=== PATIENT | female | born 1940 | race Caucasian/White ===

== ENCOUNTER 2019-04-10 11:35 | Inpatient (IN) ==
--- NOTE | 2019-03-22 15:47 | PAT Medication Instructions ---
Medication Instructions Date of Service March 22, 2019 Home Medications arnica 1 applic TOPICAL DAILY PRN 04/15/18 [History Confirmed 03/21/19] biotin 10 mg PO QDL 04/15/18 [History Confirmed 03/21/19] cyanocobalamin (vitamin B-12) [Vitamin B-12] 5,000 mcg SUBLINGUAL QAM multivitamin 1 tab PO QAM 04/15/18 [History Confirmed 03/21/19] tyrosine 500 mg capsule 500 mg PO QAM cap 12/29/18 [History Confirmed 03/21/19] folic acid 800 mcg PO QAM 01/06/19 [History Confirmed 03/21/19] levothyroxine 25 mcg PO QAM 01/06/19 [History Confirmed 03/21/19] meclizine 25 mg PO UD PRN 01/24/19 [History Confirmed 03/21/19] Eliquis 5 mg PO BID 03/21/19 [History Confirmed 03/21/19] ASK your prescriber and surgeon Eliquis 5 mg PO BID 03/21/19 (in order for spinal anesthesia, Eliquis needs to be stopped 72 hours/3 days before surgery. Please check if okay with doctor that prescribes this to you) STOP taking 2 weeks before surgery (or as soon as possible if surgery is within 2 weeks) biotin 10 mg PO QDL 04/15/18 [History Confirmed 03/21/19] tyrosine 500 mg capsule 500 mg PO QAM cap 12/29/18 [History Confirmed 03/21/19] STOP taking 24 hours before surgery arnica 1 applic TOPICAL DAILY PRN 04/15/18 [History Confirmed 03/21/19] DO NOT take the morning of surgery cyanocobalamin (vitamin B-12) [Vitamin B-12] 5,000 mcg SUBLINGUAL QAM multivitamin 1 tab PO QAM 04/15/18 [History Confirmed 03/21/19] folic acid 800 mcg PO QAM 01/06/19 [History Confirmed 03/21/19] Take morning of surgery With a small sip of water, OTHERWISE NOTHING TO EAT OR DRINK AFTER MIDNIGHT: levothyroxine 25 mcg PO QAM 01/06/19 [History Confirmed 03/21/19] meclizine 25 mg PO UD PRN (if needed) Other Notes If you have any questions please call us at [phone] or [phone] or [phone] or [phone]
--- NOTE | 2019-03-23 10:41 | Anesthesiology Consultation ---
Date of Service March 23, 2019 Assessment & Plan (1) Encounter for pre-operative examination: - Awaiting review preop testing (labs, CXR). - Awaiting most recent cardiology office visit note/pacer check. - Eliquis instructions: patient made aware that in order for spinal anesthesia, Eliquis needs to be held 72 hours prior to surgery. Patient voiced understanding/will check if okay with prescriber. Chart Review Chart Review: Patient seen in Pre Admission Testing Teaching & Discussion Pre-Anesthesia Teaching/Discussion Notes: Instructed NPO after midnight before surgery,except medications with 15 cc of water. Medication instructions provided according to the PAT guidelines. History Surgery Operation Date: 04/10/19 13:50 Proposed Procedures p Right Total Knee Replacement Revision - Anshul Salgado MD Height/Weight Height: 4 ft 10 in Weight: 53.5 kg Allergies Allergy/AdvReac Type Severity Reaction Status Date / Time egg Allergy Mild Rash Verified 03/21/19 13:48 nitrofurantoin AdvReac Intermediate dizziness Verified 03/23/19 10:36 [From Macrodantin] adhesive tape AdvReac Mild skin Verified 03/23/19 10:36 irritation clindamycin AdvReac Mild GI upset Verified 03/23/19 10:36 Penicillins AdvReac Mild GI upset Verified 03/23/19 10:36 Medications Home Medications Medication Instructions Recorded Confirmed Last Taken arnica 1 applic TOPICAL DAILY PRN 04/15/18 03/21/19 01/24/19 biotin 10 mg PO QDL 04/15/18 03/21/19 Unknown cyanocobalamin (vitamin B-12) 5,000 mcg SUBLINGUAL QAM 04/15/18 03/21/19 01/22/19 [Vitamin B-12] multivitamin 1 tab PO QAM 04/15/18 03/21/19 01/22/19 tyrosine 500 mg capsule 500 mg PO QAM cap 12/29/18 03/21/19 01/22/19 folic acid 800 mcg PO QAM 01/06/19 03/21/19 01/22/19 levothyroxine 25 mcg PO QAM 01/06/19 03/21/19 01/22/19 meclizine 25 mg PO UD PRN 01/24/19 03/21/19 01/24/19 10:00 Eliquis 5 mg PO BID 03/21/19 03/21/19 Unknown Past Medical History Medical History A-fib (Chronic) Chronic pain left knee Diverticular disease Hx of basal cell carcinoma face s/p excision Hx of vertigo Hypothyroidism Pacemaker hx tachy cody syndrome Exercise / Class Metabolic Activity III < 4 Walking/Shop/Light housework (uses walker PRN) Past Family History Family History Grandmother (Maternal) Family history of diabetes mellitus Mother Colorectal cancer Other Family history non-contributory Past Surgical History Surgical History History of basal cell carcinoma excision History of excision of pilonidal cyst History of permanent cardiac pacemaker placement 2014 History of surgery IMPLANTS IN CHIN 2/2 DETERIORATION History of total right knee replacement Hx of colonoscopy with polypectomy Hx of tonsillectomy Past Anesthesia History No Family Hx of Anesthesia Complications and Other Severe diarrhea post-op knee surgery History of PONV No Hx of PONV and No Hx of Motion Sickness Social History Smoking Status: Never smoker Do You Dip or Chew Tobacco: No Hx Alcohol Use: No Hx Substance Use: No substance use type: does not use Review of Systems Patient denies chest pain, shortness of breath, cough, wheezing, palpitations. Physical Exam Vital Signs VITALS BP 154/82 (patient monitors- bp typically 130's/70's) P 90 TEMP 98.2 SP02 95%RA RESP 16 PHYSICAL Mildly decreased cervical extension Full TMJ range of motion. TMD 3.5 finger breaths Mallampati Score 2 Dentition: intact, lower front implants Lungs: clear throughout to auscultation Cardiac: regular rate and rhythm, no murmurs noted Spine: kyphosis Carotid arteries: negative bruit Extremities: no edema Testing Electrocardiogram Date: 04/15/18 04/15/18: Atrial-paced rhythm at 63bpm. *Poor data quality* 04/14/18: Atrial-paced rhythm at 69bpm. Echocardiogram Date: 08/28/16 LVEF 55%. Mild AR. Grade I DD. Trace to mild TR. Small to medium size effusion adjacent to the RA/RV. No evidence of tamponade.
--- NOTE | 2019-03-23 12:07 | XRay Report ---
XR chest Pre-admission PA/Lat CLINICAL HISTORY: 78 years-old Female presenting with preoperative assessment. TECHNIQUE: PA and lateral views of the chest were obtained. COMPARISON: 04/15/2018. FINDINGS: Left subclavian pacer with leads in the right atrium and right ventricular apex. Atherosclerosis of t he aortic arch. Cardiac silhouette mildly enlarged. Lungs and pleural spaces clear. Scoliotic curvatu re and degenerative changes of the spine. Suspected osteopenia. Upper abdomen normal. IMPRESSION: 1. Mild cardiomegaly. No other convincing evidence of acute cardiopulmonary disease. Electronically signed by: Farhan Diallo M.D. 03/23/2019 12:05 PM
[2019-03-23 12:42] LABS: Basophils # (auto) 0.03 K/uL (0-0.2); Basophils % (auto) 0.6 %; Eosinophils # (auto) 0.12 K/uL (0-0.5); Eosinophils % (auto) 2.3 %; Hematocrit (blood only) 43.7 % (37-47); Hemoglobin 14.5 g/dL (12.0-16.0); Immature Granulocytes # (auto) 0.01 K/uL (0.00-0.02); Immature Granulocytes % (auto) 0.2 %; Lymphocytes # (auto) 1.09 K/uL (1.2-3.4); Lymphocytes % (auto) 21.3 %; Mean Corpuscular Hemoglobin 30.1 pg (25-34); Mean Corpuscular Hgb Conc 33.2 g/dL (32-36); Mean Corpuscular Volume 90.9 fL (80-100); Mean Platelet Volume 9.8 fL (7.4-10.4); Monocytes # (auto) 0.46 K/uL (0.11-0.59); Neutrophils % (auto) 66.6 %; Platelet Count 219 K/uL (130-400); RDW Coefficient of Variation 14.2 % (11.5-14.5); RDW Standard Deviation 47.8 fL (36.4-46.3); Red Blood Count 4.81 M/uL (4.2-5.4); White Blood Count 5.11 K/uL (4.8-10.8)
[2019-03-23 13:03] LABS: BUN Creatinine Ratio 25.5 (10-20); Blood Urea Nitrogen 19 mg/dl (7-18); C Reactive Protein < 0.29 mg/dl (0-0.29); Calcium 9.4 mg/dl (8.5-10.1); Carbon Dioxide 29 mmol/L (21-32); Chloride 108 mmol/L (98-107); Est GFR (African American) 88.7; Est GFR (Non-African American) 76.5; Glucose 83 mg/dl (70-99); Potassium 4.2 mmol/L (3.5-5.1); Sodium 142 mmol/L (136-145)
[2019-03-23 13:04] LABS: Partial Thromboplastin Ratio 1.1; Partial Thromboplastin Time 30.2 Seconds (21.0-31.0); Prothrombin Time 10.5 Seconds (9.0-12.0)
--- NOTE | 2019-04-07 11:15 | History and Physical Report ---
DATE OF ADMISSION: 04/10/2019 CHIEF COMPLAINT: Right knee pain, discomfort, instability and swelling. HISTORY OF PRESENT ILLNESS: The patient is an 78-year-old female, fairly active and independent who presents for treatment of her right knee. She lives in the [place] area now and she moved here from [place]. She had a right knee replaced in December [address] Valladares in [place]. She did pretty well until about a year ago. She started developing increased pain, discomfort and deformity into her right mosher primarily. Her symptoms have gradually progressed over time. She is having more and more difficulty walking. Her knee feels unstable. She has had an extensive evaluation by Dr. Zambrano as well as went back to see Dr. Valladares. She had an infectious workup which was negative. She now presents for revision. Dr. Zambrano deferred and Dr. Valladares recommended she have it done closer to home. She had no problems with wound drainage or healing after the initial surgery. She uses a walker to get around due to her instability and pain. PAST MEDICAL HISTORY: 1. Atrial fibrillation followed by Dr. aMyo. 2. Spinal arthritis. 3. Oral implants. 4. Basal cell skin cancer. PAST SURGICAL HISTORY: 1. Pilonidal cyst excision. 2. Oral surgery. 3. Basal cell skin cancer removed from her face. 4. Right knee replacement done in December 2014. ALLERGIES: EGG-BASED PENICILLIN, MACRODANTIN. Not true allergy, just GI upset. CURRENT MEDICINES: 1. Eliquis 5 mg twice a day. 2. Levothyroxine 0.25 mg a day. 3. Cipro for a dental cleaning. SOCIAL HISTORY: This is an 78-year-old female. She is . Lives in [place]. Medical doctor is Dr. Delaney. Acid Mixer is Dr. Mayo. Does not smoke. FAMILY HISTORY: Noncontributory. REVIEW OF HISTORY: Negative for diabetes, neurologic problem, vascular problem, bleeding disorders. Denies any chest pain or shortness of breath. No history of DVT or PE. She is on Eliquis for AFib. She has a pacemaker in place. PHYSICAL EXAMINATION: GENERAL: Pleasant elderly female. Looks to be in reasonably good health. HEENT: Benign. NECK: Supple, no lymphadenopathy. LUNGS: Clear to auscultation. HEART: Regular rate and rhythm. ABDOMEN: Soft, nontender, nondistended. EXTREMITIES: Grossly neurovascularly intact except as follows: Examination of the right leg reveals the patient walks with a markedly antalgic gait. She has marked varus deformity to the knee which is increased with weightbearing. She has a small knee effusion. She has gross laxity to valgus stressing. She can do a straight leg raise. She has no pain with hip motion. There is no warmth to the knee. X-RAYS: X-rays of the right knee reviewed. Shows evidence of posterior stabilized total knee arthroplasty with obvious tibial loosening with her tray loose and tipped into varus. This has been a longstanding problem as there is osteolysis and extensive bone formed around it. The femur also looks like it might be a little bit loose. BONE SCAN: Bone scan from [facility] was reviewed. Shows obvious increased uptake around the tibia. Seems to be a little uptake around the femur as well. LABORATORY DATA: We did send her knee aspirate off for analysis. I aspirated the knee and she only had 637 white cells with 48% polys. Culture was no growth. Her laboratory workup was a normal CRP. Sed rate was just slightly elevated at 24. 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 There may be some loosening of the femoral component as well. This has been longstanding based on her radiographic changes. She had an extensive workup for infection which was negative. PLAN: We are going to take her to the operating room and revise her knee. We talked about the risks of this and she elected to proceed. If we get in there and there are signs of infection we will place an antibiotic spacer. I think that is unlikely concerning workup. The risks and benefits of right total knee revision were explained to the patient including but not limited to DVT, PE, , infection, neurological injury, vascular injury, bleeding problem, pain, limited range of motion, stiffness, failure to relieve her symptoms, incomplete relief of symptoms, need for further surgery in future, fracture, leg length inequality, nerve palsy, persistent infection and fracture. The patient understands and desires to proceed. Informed consent was obtained. The patient has been seen by Dr. Mayo and cleared for surgery. She is planning to be discharged to home with her 's help and the [facility]. I will have a hinged knee available in case it is needed due to her osteoporosis and concerns for fracture.
[~2019-04-10 11:35] MED LIST: ACETAMINOPHEN 500 MG TAB PO SCH; BUPIVACAINE 0.25% 30 ML VIAL ONE; BUPIVACAINE 0.5 % 5 MG/1 ML PF 10ML VIAL ONE; BUPIVACAINE LIPOSOME/PF 266 MG, BUPIVACAINE/EPINEPHRINE 50 ML, SODIUM CHLORIDE 0.9% 30 ... INFIL SCH; CEFAZOLIN 2000MG 2,000 MG/15 ML SYR IV SCH; FAMOTIDINE 20 MG TAB PO SCH; GABAPENTIN 300 MG CAP PO SCH; LR 500ML BOLUS, THEN 15ML/HR IV SCH; LR 60ML/HR IV SCH; METOCLOPRAMIDE HCL 10 MG TABLET PO SCH; TRANEXAMIC ACID 1,000 MG **IV Intra-op IV SCH
--- NOTE | 2019-04-10 12:27 | History & Physical Bridge Note ---
Date of Service April 10, 2019 History & Physical Bridge Note I have examined the patient, reviewed the History & Physical and in the interval since the performance of the History & Physical I have noted the following changes of clinical significance: no changes noted
[2019-04-10] MEDS ORDERED: fentaNYL citrate 100 MCG/2 ML VIAL ONE (13:38)
[2019-04-10] MEDS ORDERED: MIDAZOLAM HCL 1 MG/ML 2ML VIAL ONE (13:38)
[2019-04-10] MEDS ORDERED: ROPIVACAINE 0.5% 5 MG/ML 30 ML VIAL ONE (13:48)
[2019-04-10] MEDS ORDERED: EPINEPHrine INJ 1 MG/ML AMP ONE ×2 (13:49→14:10)
[2019-04-10] MEDS ORDERED: BUPIVACAINE/EPINEPHRINE 0.25% 1:200,000 30 ML VIAL ONE (14:09)
[2019-04-10] MEDS ORDERED: SODIUM CHLORIDE 0.9% PF 50 ML VIAL ONE (14:09)
[2019-04-10] MEDS ORDERED: BUPIVACAINE LIPOSOME 1.3% 266 MG/20 ML VIAL ONE (14:09)
[2019-04-10] MEDS ORDERED: BACITRACIN INJ 50,000 UNIT VIAL ONE (14:09)
[2019-04-10] MEDS ORDERED: BUPIVACAINE 0.25% 30 ML VIAL ONE (14:10)
[2019-04-10] MEDS ORDERED: VANCOMYCIN HCL 1000MG/20ML VIAL ONE (14:10)
[2019-04-10] MEDS ORDERED: ePHEDrine sulfate 50 MG/ML AMP IV PRN (14:38)
[2019-04-10] MEDS ORDERED: ATROPINE SULFATE 0.1 MG/ML 10ML SYR IV PRN (14:38)
[2019-04-10] MEDS ORDERED: ONDANSETRON INJ 2 MG/ML 2 ML VIAL ONE (14:45)
--- NOTE | 2019-04-10 17:17 | Post Operative Brief Note ---
PG Immediate Post Op with CF Date of Surgery April 10, 2019 Pre & Post Diagnosis Operation Date: 04/10/19 13:50 Pre-Op Diagnosis: Right Knee Aseptic tibial loosening Post-Op Diagnosis: Right Knee Aseptic tibial loosening I identified the patient and participated in the time-out.: Yes Procedure Operation Date: 04/10/19 13:50 Actual Procedures p Right Total Knee Replacement Revision(Right) - Anshul Salgado MD Surgeon Anshul Salgado MD Reimbursement Representative Ignacio, PAC Estimated Blood Loss 100 Findings Consistent with Post-Op Diagnosis Fluids 1000 cc Specimens Specimen Description: Culture #1: Right Knee Joint Fluid Frozen Section #1: Right Knee Synovium Drains Yao Catheter Anesthesia Type Spinal MAC Complications none Disposition Accompanied Patient To Recovery: No Disposition: Recovery Room
--- NOTE | 2019-04-10 17:44 | XRay Report ---
XR knee RT 1 or 2V routine CLINICAL HISTORY: Surgical Post Op COMPARISON: 03/20/2019 DISCUSSION: There are postsurgical changes of a total right knee arthroplasty revision with longstem femoral and tibial components. No acute fractures are visualized. There is evidence for patellar resu rfacing. There is gas present within the soft tissues consistent with recent surgery. There are overl deneen skin allan. There has been correction of the previously identified there is deformity. IMPRESSION: Postsurgical changes of a total right knee arthroplasty revision. No complicating feature s identified Electronically signed by: Hayden Casas M.D. 04/10/2019 5:43 PM
[2019-04-10] MEDS ORDERED: HYDROmorphone INJ 0.5 MG/0.5 ML SYR IV PRN (18:26)
[2019-04-10] MEDS ORDERED: ONDANSETRON INJ 2 MG/ML 2 ML VIAL IV PRN (18:26)
[2019-04-10] MEDS ORDERED: BISACODYL 10 MG SUPP PR PRN (18:26)
[2019-04-10] MEDS ORDERED: NALOXONE HCL 0.4 MG/1 ML VIAL/CARP IV PRN (18:26)
[2019-04-10] MEDS ORDERED: MAGNESIUM HYDROXIDE SUSP 30 ML UDC PO PRN (18:26)
[2019-04-10] MEDS ORDERED: ALUMINUM/MAGNESIUM SUSP 30 ML UDC PO PRN (18:26)
[2019-04-10] MEDS ORDERED: METOCLOPRAMIDE HCL INJ 5 MG/ML 2 ML VIAL IV PRN (18:26)
[2019-04-10] MEDS ORDERED: ARNICA TOP PRN (18:26)
--- NOTE | 2019-04-10 18:33 | Anesthesiology Progress Note ---
Date of Service April 10, 2019 Anesthesia Post Procedure Vital Signs Vital Signs: Temp Pulse Pulse Resp BP Pulse Ox 04/10/19 18:25 36.6 C 61 15 180/80 H 100 04/10/19 18:15 36.6 C 60 11 L 175/76 H 100 04/10/19 18:05 36.6 C 62 12 176/81 H 100 04/10/19 17:55 36.9 C 60 13 164/64 H 100 04/10/19 17:45 36.9 C 60 14 164/71 H 100 04/10/19 17:35 36.9 C 61 14 161/73 H 100 04/10/19 17:27 36.9 C 63 15 171/81 H 99 04/10/19 12:22 36.7 C 89 18 145/59 H 98 Transfer of Care Handoff Completed per policy Notes Mental Status: alert / awake / arousable and participated in evaluation Patient Amnestic to Procedure: Yes Nausea / Vomiting: adequately controlled Pain: adequately controlled Airway Patency, RR, SpO2: stable & adequate BP & HR: stable & adequate Hydration State: stable & adequate Neuraxial Anesthesia: was administered and sensory block is resolving Anesthetic Complications: no major complications apparent and Pt Satisfied with anesthetic care
[2019-04-10] MEDS ORDERED: MECLIZINE HCL 25 MG TAB PO PRN (18:47)
[2019-04-10] MEDS: TRAMADOL HCL 50 MG TABLET PO PRN (18:56)
--- NOTE | 2019-04-10 19:18 | Operative Report ---
Post Operative Report Pre & Post Diagnosis Operation Date: 04/10/19 13:50 Pre-Op Diagnosis: Right Knee Replacement - Aseptic tibial loosening Post-Op Diagnosis: Right Knee Replacement - Aseptic tibial loosening I identified the patient and participated in the time-out.: Yes Procedure Operation Date: 04/10/19 13:50 Actual Procedures p Right Total Knee Replacement Revision(Right) - Anshul Salgado MD Surgeon Anshul Salgado MD Cardiology Teacher Ignacio, PAC Estimated Blood Loss 100 Findings Consistent with Post-Op Diagnosis Operative findings revealed marketed varus knee with loose tibial component. Th e component had debonded from the cement mantle and the cement mantle was fairly loose within the proximal tibia. The femur appeared well fixed. The patella was well fixed. Moderate sized joint effusion. Extensive synovitis. Diffuse osteopenia. Gram stain revealed moderate WBCs no organisms. Frozen section was less than 5 polys per high-power field. Fluids 100 cc Specimens 1. Right knee synovium sent for frozen section which revealed less than 5 polys per high-power field. 2. Joint fluid sent for stat Gram stain aerobic and anaerobic culture. Gram stain revealed no organisms. Drains None. Anesthesia Type Spinal MAC Complications none Disposition Accompanied Patient To Recovery: No Disposition: Recovery Room Indications Patient is an 78-year-old fairly active healthy female who underwent a right knee replacement done elsewhere about 1/2 years ago. She did well until about a year ago when she developed increased pain discomfort swelling and deformity to her knee. She had extensive evaluation which revealed a loose tibial tray. She continued to walk on this and developed a progressive varus deformity to her knee. She has difficulty getting around to put any weight on her leg at all. She had several infectious work-ups which were all negative. The patient elected proceed with surgical revision. Description of Procedure Operative implants consisted of: 1. Biomet Vanguard III 60 size 60 right posterior bifemoral component with a 5 mm posterior medial augment, 2.5 mm offset stem, 14 x 80 mm stem extension. 2. Biomet Vanguard III 60 size 63 tibial tray with medial and lateral 10 mm augments, 2.5 mm offset, small cruciate wing, and a 12 x 80 stem extension. 3. 10 mm posterior stabilized polyethylene insert. Patient is taken to the operating room identified placed in the operative supine position with all contact areas were properly padded. IV antibiotics were provided by anesthesia team. Spinal anesthetic and abductor canal block had been provided holding area. Yao catheter was placed in sterile fashion right thigh tourniquet was then placed in the right lower extremities and prepped draped in usual sterile fashion. The right leg was elevated exsanguinated use of an Esmarch interspace at 300 mmHg. An anterior approach to the right knee was then performed using the previous longitudinal incision extending it proximally and distally. Sharp dissection was carried through subcutaneous tissues down to the extensor mechanism. A medial parapatellar arthrotomy incision was made. I did take great care not to undermine the soft tissue much as she had a very thin soft tissue envelope. Some subperiosteal dissection was carried out medially. We did an extensive dissection medial and posterior medially as she had a varus deformity which is scarred down and was tight medially. An extensive synovectomy of the suprapatellar pouch and medial lateral gutters was performed. This was sent off for frozen section which revealed less than 5 polys per high- power field. The joint fluid was analyzed upon entering the joint and that showed rare WBCs and no organisms. We like to proceed with revision. The patella was subluxated laterally. An osteotome was used to dislodge the polyethylene insert. I then exposed the proximal tibia. This was clearly loose. I then proceeded to remove the femur. The femoral interfaces were identified. A microsagittal saw was then used to disrupt the interfaces in the femoral component was removed without much difficulty. The tibial tray was removed without difficulty at all as it was debonded. I did have to remove the cement piecemeal without too much difficulty. We then proceeded with preparing at the bone surfaces. Attention was first drawn the tibia. The tibia was entered with the canal finder. I then reamed up to a size 12. The intramedullary cutting guide was then placed in the proximal tibial cut was made just above the base of the tibial defect. This did take a fairly large piece of peripherally on the latera l side. I then sized the tibia to a size 63. The tibia was prepared for the 2.5 mm offset stem. A small cruciate wing was used to punch the tibia. Her proximal tibial metaphysis was fairly small and I could not get the offset reamer down so we ended up placing 10 mm augments to raise this up so we could fit in the tibia. This eventually fit quite nicely and the tibial tray was assembled and placed and attention was then drawn to the femur. The distal femur was then with a sharp drill. I then reamed up to 14. The cutting guide was placed in the distal femoral cut was made just as a freshen up cut to expose the bony surfaces. The femur was then sized to a size 60. The AP cutting block with a 5 mm offset was then placed in optimal position and pinned in place. The anterior cut, anterior chamfer, posterior cut, posterior chamfer cuts were made. The femoral component was placed. I did cut for a posterior medial augment. Femoral component was placed. The box cut was made. The femoral trial was assembled and placed. I then trialed the knee and the 10 mm insert fit most appropriately. I did inspect the patella which appeared well fixed and the extensor mechanism was intact and I elected not to address this. Attention then drawn to place the permanent components. All trial components were removed. The wound was irrigated extensively. I got rid of all the soft tissue interfaces at the bone surfaces. I then mixed up with a triple batch of Palacos G cement with 2 g of vancomycin. Femoral component was first placed a cementing the metaphysis and then tibial tray was placed cementing the metaphysis. Also extraneous cement was removed. A 10 mm insert was placed the knee was brought out in full extension until the cement hardened. Final cement check was then performed. The tourniquet was let down for tourniquet time 120 minutes. Hemostasis assured with electrocautery. I did inject locally with 100 cc of combination of 20 cc of Exparel, 30 cc normal arley ine, 50 cc of quarter percent Marcaine with epinephrine. Patient did receive 1 g of tranexamic acid. The wound was once again irrigated. Extensor macros then closed with combination 1 PDS suture #1 Vicryl suture in [id number] fashion with extensive medical checked found to be intact the subtenons tissue then closed with 2 Dexon suture in a buried interrupted fashion skin was closed skin allan. Leg was then cleaned dried and sterile dressing was Xeroform, 4 x 4's, sterile cast padding, Meño bandage were applied. Patient transferred to the recovery room in stable condition. Patient tolerated procedure well no comp case but on sponge counts are correct at the end the operation. I attest to the content of the Intraoperative Record and any orders documented therein. Any exceptions are noted below.
[2019-04-10] MEDS: KETOROLAC TROMETHAMINE 15 MG/ML VIAL IV SCH (20:36)
[2019-04-10] MEDS: ACETAMINOPHEN 500 MG TAB PO SCH (20:37)
[2019-04-10] MEDS: SENNA 8.6 MG TAB PO SCH (20:37)
[2019-04-10] MEDS: DOCUSATE SODIUM 100 MG CAP PO SCH (20:38)
[2019-04-10] MEDS: CEFAZOLIN 1000MG 1,000 MG/7.5 ML SYR IV SCH (22:05)
[2019-04-10] MEDS: SODIUM CHLORIDE 0.9% 1000ML 1,000 ML IV SCH (22:14)
[2019-04-11] MEDS: KETOROLAC TROMETHAMINE 15 MG/ML VIAL IV SCH ×3 (02:34→13:01)
[2019-04-11] MEDS: SODIUM CHLORIDE 0.9% 1000ML 1,000 ML IV SCH (05:43)
[2019-04-11 05:45] LABS: Hemoglobin 11.5 g/dL (12.0-16.0); Mean Corpuscular Hgb Conc 31.9 g/dL (32-36); Mean Corpuscular Volume 90.7 fL (80-100); Mean Platelet Volume 9.7 fL (7.4-10.4); Platelet Count 167 K/uL (130-400); RDW Coefficient of Variation 14.2 % (11.5-14.5); RDW Standard Deviation 47.4 fL (36.4-46.3); Red Blood Count 3.97 M/uL (4.2-5.4); White Blood Count 6.21 K/uL (4.8-10.8)
[2019-04-11] MEDS: LEVOTHYROXINE SODIUM 25 MCG TABLET PO SCH (05:53)
[2019-04-11] MEDS: ACETAMINOPHEN 500 MG TAB PO SCH ×3 (05:53→21:26)
[2019-04-11] MEDS: CEFAZOLIN 1000MG 1,000 MG/7.5 ML SYR IV SCH (05:57)
[2019-04-11 06:22] LABS: BUN Creatinine Ratio 24.2 (10-20); Calcium 8.2 mg/dl (8.5-10.1); Creatinine Clr Calc Pharmacy 44.6 ml/min; Est GFR (African American) 90.2; Est GFR (Non-African American) 77.8; Potassium 4.1 mmol/L (3.5-5.1)
--- NOTE | 2019-04-11 08:11 | Anesthesiology Progress Note ---
Date of Service April 11, 2019 Anesthesia Post Procedure Vital Signs Vital Signs: Temp Pulse Pulse Resp BP Pulse Ox 04/11/19 07:01 36.6 C 60 14 91/44 L 94 04/11/19 05:28 64 117/58 L 04/11/19 03:54 36.7 C 60 14 99/49 L 94 04/11/19 00:20 36.7 C 60 15 104/58 L 93 04/10/19 21:40 36.6 C 60 14 136/66 94 04/10/19 20:34 36.4 C L 82 16 131/72 93 04/10/19 19:47 36.4 C L 61 17 171/74 H 98 04/10/19 18:43 36.5 C 64 14 158/73 H 96 04/10/19 18:25 36.6 C 61 15 180/80 H 100 04/10/19 18:15 36.6 C 60 11 L 175/76 H 100 04/10/19 18:05 36.6 C 62 12 176/81 H 100 04/10/19 17:55 36.9 C 60 13 164/64 H 100 04/10/19 17:45 36.9 C 60 14 164/71 H 100 04/10/19 17:35 36.9 C 61 14 161/73 H 100 04/10/19 17:27 36.9 C 63 15 171/81 H 99 04/10/19 12:22 36.7 C 89 18 145/59 H 98 Pain Intensity Right Knee: Pain Intensity: 8 Notes Mental Status: alert / awake / arousable and participated in evaluation Patient Amnestic to Procedure: Yes Nausea / Vomiting: adequately controlled Pain: adequately controlled Airway Patency, RR, SpO2: stable & adequate BP & HR: stable & adequate Hydration State: stable & adequate Neuraxial Anesthesia: was administered and sensory block resolved Anesthetic Complications: no major complications apparent and Pt Satisfied with anesthetic care
[2019-04-11] MEDS ORDERED: MULTIVITAMIN TAB PO SCH (09:00)
[2019-04-11] MEDS ORDERED: TYROSINE PO SCH (09:00)
[2019-04-11] MEDS: TRAMADOL HCL 50 MG TABLET PO PRN ×2 (09:11→17:05)
[2019-04-11] MEDS: FERROUS GLUCONATE 324 MG TAB PO SCH ×2 (09:12→16:57)
[2019-04-11] MEDS: DOCUSATE SODIUM 100 MG CAP PO SCH ×2 (09:12→21:26)
[2019-04-11] MEDS: CYANOCOBALAMIN (VITAMIN B-12) 2,500 MCG TAB.SUBL SL SCH (09:12)
[2019-04-11] MEDS: FOLIC ACID 400 MCG TAB PO SCH (09:12)
[2019-04-11] MEDS: MULTIVITAMIN TAB PO SCH (09:13)
--- NOTE | 2019-04-11 11:22 | Progress Note ---
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 She is doing pretty well. Pain is controlled. Therapy went pretty well. Denies any chest pain or shortness of breath. Not feeling dizzy or lightheaded. OBJECTIVE: VITAL SIGNS: Temperature 36.6. Vital signs stable. GENERAL: Shows a pleasant elderly female. She is sitting in her bedside chair, looks comfortable. EXTREMITIES: Examination of the right leg reveals the leg to be well aligned. She can dorsiflex and plantarflex her foot appropriately. She is neurologically intact. She has got brisk refill. LABORATORY DATA: Hemoglobin 11.5. Hematocrit 36.0. Electrolytes are stable. ASSESSMENT: An 78-year-old female postop day 1 from a revision total knee arthroplasty, doing well. Pain is controlled. She is neurologically intact. She does have a history of atrial fibrillation. PLAN: 1. DVT prophylaxis including thigh-high TEDs, SCDs, and will put her back on her Eliquis. She was at a prophylactic dose in the hospital and then discharge on a therapeutic dose. She was on preop. 2. PT/OT. Weight bear as tolerated. Right total knee protocol. 3. Pain control, doing pretty well with current pain regimen. We then tracked to be careful with pain medicines due to her age and risk of side effects. 4. Disposition: She is planning to be discharged to home with some home health once adequately recovered and medically stable.
[2019-04-11] MEDS ORDERED: NON-FORMULARY MEDICATION (Biotin 10 MG) PO SCH (11:30)
[2019-04-11] MEDS: APIXABAN 2.5 MG TAB PO SCH (16:57)
[2019-04-11] MEDS: SENNA 8.6 MG TAB PO SCH (21:26)
[2019-04-12] MEDS: ACETAMINOPHEN 500 MG TAB PO SCH ×2 (05:22→13:53)
[2019-04-12] MEDS: APIXABAN 2.5 MG TAB PO SCH (05:23)
[2019-04-12] MEDS: TRAMADOL HCL 50 MG TABLET PO PRN ×2 (05:23→12:13)
[2019-04-12] MEDS: LEVOTHYROXINE SODIUM 25 MCG TABLET PO SCH (05:23)
[2019-04-12] MEDS: FERROUS GLUCONATE 324 MG TAB PO SCH (07:51)
[2019-04-12] MEDS: CYANOCOBALAMIN (VITAMIN B-12) 2,500 MCG TAB.SUBL SL SCH (07:51)
[2019-04-12] MEDS: FOLIC ACID 400 MCG TAB PO SCH (07:52)
[2019-04-12] MEDS: MULTIVITAMIN TAB PO SCH (07:52)
[2019-04-12] MEDS: DOCUSATE SODIUM 100 MG CAP PO SCH (07:52)
--- NOTE | 2019-04-12 09:06 | Progress Note ---
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 She is doing okay. Having bouts of pretty significant pain intermittently, but the pain medicine seems to be working. No chest pain or shortness of breath. Not feeling dizzy or lightheaded. OBJECTIVE: VITAL SIGNS: Temperature 36.9. Vital signs stable. EXTREMITIES: Examination of the right leg reveals the leg to be well aligned. Dressing is in place. She does have a little bit of bloody drainage in the anterior aspect. Had some moderate swelling to the leg. Calf is soft. She can dorsiflex and plantarflex her foot appropriately. She has got brisk refill. LABORATORY DATA: Culture results are no growth to date. ASSESSMENT: An 78-year-old female postop day 2 from a right total knee revision for aseptic loosening, doing reasonably well. PLAN: 1. DVT prophylaxis including thigh-high TEDs, SCDs, and back on her Eliquis. We are going to keep on his prophylactic dose while in the hospital and she can go home on her normal dose. 2. PT/OT. She will weightbear as tolerated. Right total knee protocol. 3. Pain control, doing okay with current pain regimen. 4. Disposition: Plan to discharge to home with some home health once medically stable and adequately recovered.
--- NOTE | 2019-04-18 00:47 | Discharge Summary ---
ADMITTING PHYSICIAN AND SURGEON: Dr. Anshul Salgado. 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 PROCEDURE PERFORMED: Right total knee arthroplasty revision. SECONDARY DIAGNOSES: Atrial fibrillation, spinal arthritis, oral implants, basal cell skin cancer. CONSULTS: None obtained. HISTORY AND PHYSICAL EXAMINATION: Well documented in the patient's chart. HOSPITAL COURSE: The patient was admitted on 04/10/2019, underwent revision arthroplasty as above, tolerated the procedure well. There were no complications. She was transferred to the PACU postoperatively and later to the orthopedic floor for further care. She was given Ancef for antibiotic prophylaxis, PRIYA stockings, SCDs and Eliquis for DVT prophylaxis. Her hemoglobin, hematocrit and vital signs were monitored during her hospital stay and remained stable. She did not require any blood transfusions. There were no complications. By postoperative day 2, she was tolerating a regular diet, pain was controlled with oral pain medicine. She was participating in physical therapy. By postop day 2, she was discharged home, set up with home health services. She was given printed discharge instructions as well as new prescriptions for extra strength Tylenol and tramadol. Continue her home medications, continue physical therapy, weightbearing as tolerated, PRIYA stockings. Follow up approximately 2 weeks postop or sooner if there are any problems or concerns.
== END 2019-04-12 14:22 | disposition home health service (06) | DRG 467 ==
LOC: ASU 11:35 → 3E 17:20

== ENCOUNTER 2020-10-06 22:29 | Inpatient (IN) ==
[2020-10-06] MEDS ORDERED: ACETAMINOPHEN 500 MG TAB PO STA (22:42)
[2020-10-06] MEDS ORDERED: SODIUM CHLORIDE 0.9% 1000ML 500 ML IV ONE (22:42)
[2020-10-06 23:12] LABS: Basophils # (auto) 0.02 K/uL (0-0.2); Basophils % (auto) 0.3 %; Eosinophils # (auto) 0.01 K/uL (0-0.5); Eosinophils % (auto) 0.2 %; Hematocrit (blood only) 40.1 % (37-47); Hemoglobin 13.6 g/dL (12.0-16.0); Immature Granulocytes # (auto) 0.01 K/uL (0.00-0.02); Immature Granulocytes % (auto) 0.2 %; Lymphocytes # (auto) 0.52 K/uL (1.2-3.4); Lymphocytes % (auto) 8.3 %; Mean Corpuscular Hemoglobin 29.7 pg (25-34); Mean Corpuscular Hgb Conc 33.9 g/dL (32-36); Mean Corpuscular Volume 87.6 fL (80-100); Monocytes # (auto) 0.49 K/uL (0.11-0.59); Monocytes % (auto) 7.8 %; Neutrophils % (auto) 83.2 %; Platelet Count 160 K/uL (130-400); RDW Coefficient of Variation 14.5 % (11.5-14.5); RDW Standard Deviation 46.9 fL (36.4-46.3); Red Blood Count 4.58 M/uL (4.2-5.4); White Blood Count 6.25 K/uL (4.8-10.8)
[2020-10-06 23:14] LABS: Appearance Urine Cloudy (Clear); Bacteria Urine Automated Negative (Negative); Bilirubin Urine Negative (Negative); Blood Urine 1+ (Negative); Color Urine Yellow; Epithelial Cell Urine Auto >30 /lpf (0-5); Glucose Urine UA Negative (Negative); Ketones Urine Negative (Negative); Leukocyte Esterase Urine 1+ (Negative); Nitrite Urine Negative (Negative); Protein Urine 1+ (Negative); Specific Gravity Urine 1.012 (1.000-1.030); Urobilinogen Urine Negative (Negative); pH Urine 5.5 (4.5-7.5)
--- NOTE | 2020-10-06 23:21 | XRay Report ---
SINGLE VIEW CHEST CLINICAL HISTORY: Sepsis. FINDINGS: An AP, portable, upright chest radiograph is compared to study dated 03/23/2019. The examin ation is degraded by portable technique and patient rotation. The patient's head obscures the apices. A 2-lead cardiac pacemaker is unchanged in position. The heart is enlarged noting atherosclerotic ca lcification of the thoracic aorta. The pulmonary vasculature is noncongested. There is no airspace co nsolidation or large pleural effusion. No pneumothorax is seen. The skeletal structures are osteopeni c. The bony thorax is grossly intact. IMPRESSION: 1. Cardiomegaly and cardiac pacemaker. There is no radiographic evidence of congestive failure. 2. No airspace consolidation or large pleural effusion is identified. ACT 112: Negative or not required by law. Electronically signed by: Umberto Mccoy M.D. 10/06/2020 11:20 PM
[2020-10-06 23:28] LABS: Alanine Aminotransferase 29 U/L (12-78); Albumin Level 3.4 gm/dl (3.4-5.0); Aspartate Aminotransferase 30 U/L (15-37); BUN Creatinine Ratio 16.9 (10-20); Blood Urea Nitrogen 14 mg/dl (7-18); Calcium 8.6 mg/dl (8.5-10.1); Carbon Dioxide 24 mmol/L (21-32); Chloride 102 mmol/L (98-107); Creatinine Clr Calc Pharmacy 36.4 ml/min; Est GFR (African American) 77.2 ml/min; Est GFR (Non-African American) 66.6 ml/min; Glucose 111 mg/dl (70-99); INR 1.1 (0.9-1.1); Magnesium 2.2 mg/dl (1.8-2.4); Partial Thromboplastin Ratio 1.3; Potassium 3.5 mmol/L (3.5-5.1); Prothrombin Time 10.9 Seconds (9.0-12.0); Sodium 134 mmol/L (136-145)
[2020-10-06 23:33] LABS: Albumin Globulin Ratio 0.9 (0.9-2); Alkaline Phosphatase 106 U/L (45-117); Bilirubin,Total 0.7 mg/dl (0.2-1); Globulin 3.9 gm/dl (2.5-4.0); Total Protein 7.3 gm/dl (6.4-8.2); Troponin I < 0.015 ng/ml (0-0.045)
--- NOTE | 2020-10-06 23:36 | CT Scan Report ---
CT SCAN OF THE BRAIN WITHOUT IV CONTRAST CLINICAL HISTORY: Change in mental status. COMPARISON STUDY: CT of the brain dated 04/15/2018. TECHNIQUE: Unenhanced axial CT scan of the brain is performed from the vertex to the skull base. A do se lowering technique was utilized adhering to the principles of ALARA. CT DOSE: 614.27 mGy.cm FINDINGS: Brain parenchyma: There are age-related involutional changes noting moderate subcortical and periven tricular microangiopathic change. There is no hemorrhage, mass effect, or evidence of acute territori al ischemia by CT criteria. Rodriguez-white matter differentiation is preserved. No extra-axial fluid tucker ection is seen. Ventricles, sulci, cisterns: Prominent secondary to involutional change. Intracranial vasculature: There is atherosclerotic calcification of the cavernous carotid arteries. Calvarium: Unremarkable. Sinuses and mastoids: The paranasal sinuses are clear. The mastoid air cells are well pneumatized. Orbits: The bony orbits are grossly intact. There are bilateral ocular lens implants. IMPRESSION: There is no hemorrhage, mass effect, or evidence of acute territorial ischemia by CT gabriele piedra. ACT 112: Negative or not required by law. Electronically signed by: Umberto Mccoy M.D. 10/06/2020 11:34 PM
--- NOTE | 2020-10-06 23:38 | Emergency Department Note ---
Impression & Plan Fever, AMS (altered mental status), Acute UTI (urinary tract infection), Acute hypotension ED Provider Note NAME: WILLIE POOL AGE: 80 SEX: F : 1940 ARRIVES VIA: Ambulance INFORMANT: Patient, hospital account manager ED PROVIDER(S): Dony Griffith DO CHIEF COMPLAINT: Headache HPI: The patient is an 80-year-old female who presented to the emergency department by ambulance for an evaluation of altered mental status. Patient normally has a visit by family members who live close to her every Wednesday evening. When the visit her this evening they noted that she was having slurred speech and appeared to be altered in her mental status. The patient was evaluated by the EMS personnel. The family called 911. They were concerned because the patient was complaining of headache and also takes oral anticoagulants for atrial fibrillation. When they evaluated the patient she did not have a positive stroke scale. The patient does not have any specific complaints. She denies having any nausea or vomiting. She denies any headache at this time. She has had no exposures to COVID-19. She denies having any dysuria or frequency. She did not recently take Tylenol or any other medication for fever. ROS: See above HPI for pertinent positives & negatives. A total of 10 systems reviewed and were otherwise negative. PAST MEDICAL HISTORY: See Below PAST SURGICAL HISTORY: See Below FAMILY HISTORY: See Below SOCIAL HISTORY: See Below HOME MEDICATIONS: See Below ALLERGIES: See Below VITALS: See Below PHYSICAL EXAMINATION: GENERAL: The patient is awake and alert. She is somewhat anxious appearing but comfortable. EYES: The conjunctivae are clear. The pupils are round and reactive. EARS, NOSE, MOUTH AND THROAT: The nose is without any evidence of any deformity. Mucous membranes are dry. NECK: The neck is nontender and supple. RESPIRATORY: Diminished breath sounds are noted in the right lung field. There is no tachypnea or conversational dyspnea. CARDIOVASCULAR: Regular rate and rhythm noted there no murmurs rubs or gallops normal S1 normal S2. GASTROINTESTINAL: The abdomen is soft. Abdomen is nontender. PELVIS: The Pelvis is stable. No tenderness to palpation is noted. BACK: No midline tenderness or or step-off noted range of motion in flexion extension as well as rotation no signs of muscle spasm noted MUSCULOSKELETAL/EXTREMITIES: There is no evidence of gross deformity full range of motion is noted in the hips and shoulders. SKIN: Skin is warm and dry. Pedal edema was noted bilaterally. NEUROLOGIC: Patient is awake alert and oriented x3. Gait was steady. MEDICAL DECISION MAKING: The patient is an 80-year-old female who presented to the emergency department for an evaluation of headache and altered mental status. Initially prehospital personnel were called to her house because she was complaining of headache and appeared to be confused according to family members. Upon arrival to the emergency department she was found to have a significant fever. The patient was hypotensive intermittently in the emergency department. She was treated with IV fluids and IV antibiotics. She was reevaluated multiple times. She was also given Tylenol. She was feeling much better on reevaluation but her blood pressure continued to fluctuate and she had multiple episodes of hypotension. She does have a urine which could be consistent with urinary tract infection but there were significant epithelial cells so this could be contaminated specimen. Chest x-ray did not appear to be consistent with pneumonia. Head CT showed no acute disease and I do not feel her altered mental status is secondary to an intracranial process. Her sensorium is clear at this time. Given her age and comorbidities I will discuss her case with the on-call [facility] hospitalist group. Her son did present to be in the emergency department with her and states that she has had exposure to ticks near her home. For this reason anaplasmosis and Lyme testing was also done in the emergency department. Triage Nursing notes reviewed. Prior medical records reviewed Vital Signs: reviewed and remarkable for hypotension and fever. Differential diagnosis: Viral syndrome, otitis, pharyngitis, pneumonia, influenza, meningitis, urinary tract infection, sepsis, bacteremia, as well as other pathologies. ER treatment provided: See below Diagnostics interpreted by me: ECG: EKG was obtained in the emergency department. My interpretation is atrial paced rhythm with ventricular sensed noted. 60 bpm. There was no acute ST segment abnormalities. No nenana beats were noted. There was no ectopy. This was compared to a tracing from April 152017. No significant changes were noted. Cardiac Monitoring: An order was placed for continuous cardiac monitoring. The monitor shows a rate of 65 bpm with paced rhythm. Laboratory studies: As stated above and show below. Imaging studies: See below Consultation(s): 0125: Dr. Lobo was notified about the patient in the emergency department. Past Med/Surg History Medical History Chronic pain left knee Diverticular disease Hx of basal cell carcinoma face s/p excision Hx of vertigo Hypertension Hypothyroidism Osteoporosis, unspecified Pacemaker hx tachy cody syndrome Surgical History History of basal cell carcinoma excision History of excision of pilonidal cyst History of permanent cardiac pacemaker placement 2014 History of surgery IMPLANTS IN CHIN 2/2 DETERIORATION History of total right knee replacement Hx of colonoscopy with polypectomy Hx of tonsillectomy Family History Grandmother (Maternal) Family history of diabetes mellitus Mother Colorectal cancer Denies family history of Ovarian cancer Prostate cancer Myocardial infarction Breast cancer Social History Smoking Status: Never smoker Second Hand Exposure: No; Do You Dip or Chew Tobacco: No; Hx Alcohol Use: No Hx Substance Use: No Preferred Language: Puerto Rican Communication Ability: Impaired Visual Impairment: No Limitations Hearing Ability: Normal 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 Beliefs That Will Affect Care: None marital status: Current Living Situation: Alone current occupational status: retired Other Information That Helps Us Care for You: No Feels Safe at Home: Yes Safety Concerns: Feels Safe At This Time caffeine: No Dental Care, Regularly: Yes Physical Activity Frequency: Other Seatbelt Use: always Sunscreen Use: Yes Assistive Devices: Walker Allergies Allergies Allergy/AdvReac Type Severity Reaction Status Date / Time egg Allergy Mild Rash Verified 10/06/20 22:44 nitrofurantoin AdvReac Intermediate dizziness Verified 10/06/20 22:44 [From Macrodantin] adhesive tape AdvReac Mild skin Verified 10/06/20 22:44 irritation clindamycin AdvReac Mild GI upset Verified 10/06/20 22:44 Penicillins AdvReac Mild GI upset Verified 10/06/20 22:44 Home Meds Home Medications Medication Instructions Recorded Confirmed acetaminophen [Tylenol Extra 1,000 mg PO Q6H PRN 10/06/20 10/06/20 Strength] Previous Rx's Medication Instructions Recorded apixaban 2.5 mg tablet 2.5 mg PO BID #180 tab 09/03/20 Results & Data (ED) Vital Signs Vital Signs - 24 hr 10/06/20 22:49 10/06/20 22:58 10/06/20 23:00 Temperature Temperature Source Pulse Rate 78 75 63 Pulse Rate from SpO2 Sensor 77 75 64 Respiratory Rate 14 19 27 H Respiratory Effort / Characteristics Respiratory Depth Blood Pressure 117/53 L 116/51 L Blood Pressure Mean 74 72 Pulse Oximetry 97 98 96 Oxygen Delivery Method Sepsis Recent Fever Within 48 Hours Sepsis New/Unexplained Change in Mental Status Sepsis Action Taken by Nursing 10/06/20 23:10 10/06/20 23:15 10/06/20 23:20 Temperature 39.4 C H Temperature Source Oral Pulse Rate 61 67 61 Pulse Rate from SpO2 Sensor 61 67 61 Respiratory Rate 27 H 28 H 24 Respiratory Effort / Characteristics Non-Labored Respiratory Depth Normal Blood Pressure 121/54 L Blood Pressure Mean 76 Pulse Oximetry 96 100 100 Oxygen Delivery Method Room Air Sepsis Recent Fever Within 48 Hours No Sepsis New/Unexplained Change in Mental Status No Sepsis Action Taken by Nursing No Action Required 10/06/20 23:32 10/06/20 23:40 10/06/20 23:45 Temperature Temperature Source Pulse Rate 68 60 60 Pulse Rate from SpO2 Sensor 60 60 Respiratory Rate 13 22 21 Respiratory Effort / Characteristics Respiratory Depth Blood Pressure 93/40 L Blood Pressure Mean 57 Pulse Oximetry 95 96 Oxygen Delivery Method Sepsis Recent Fever Within 48 Hours Sepsis New/Unexplained Change in Mental Status Sepsis Action Taken by Nursing 10/06/20 23:50 10/07/20 00:00 10/07/20 00:02 Temperature Temperature Source Pulse Rate 60 60 60 Pulse Rate from SpO2 Sensor 60 60 60 Respiratory Rate 21 25 H 22 Respiratory Effort / Characteristics Respiratory Depth Blood Pressure 88/41 L 91/44 L Blood Pressure Mean 56 59 Pulse Oximetry 95 95 96 Oxygen Delivery Method Sepsis Recent Fever Within 48 Hours Sepsis New/Unexplained Change in Mental Status Sepsis Action Taken by Nursing 10/07/20 00:10 10/07/20 00:11 10/07/20 00:15 Temperature Temperature Source Pulse Rate 61 60 61 Pulse Rate from SpO2 Sensor 61 61 62 Respiratory Rate 22 24 18 Respiratory Effort / Characteristics Respiratory Depth Blood Pressure 90/38 L 91/44 L Blood Pressure Mean 55 59 Pulse Oximetry 96 96 96 Oxygen Delivery Method Sepsis Recent Fever Within 48 Hours Sepsis New/Unexplained Change in Mental Status Sepsis Action Taken by Nursing 10/07/20 00:20 10/07/20 00:36 10/07/20 00:37 Temperature Temperature Source Pulse Rate 60 61 60 Pulse Rate from SpO2 Sensor 60 61 61 Respiratory Rate 19 20 22 Respiratory Effort / Characteristics Respiratory Depth Blood Pressure 90/46 L Blood Pressure Mean 60 Pulse Oximetry 95 94 95 Oxygen Delivery Method Sepsis Recent Fever Within 48 Hours Sepsis New/Unexplained Change in Mental Status Sepsis Action Taken by Nursing 10/07/20 00:40 10/07/20 00:45 10/07/20 00:50 Temperature Temperature Source Pulse Rate 60 60 60 Pulse Rate from SpO2 Sensor 60 60 60 Respiratory Rate 19 19 16 Respiratory Effort / Characteristics Respiratory Depth Blood Pressure 94/45 L Blood Pressure Mean 61 Pulse Oximetry 94 94 92 Oxygen Delivery Method Sepsis Recent Fever Within 48 Hours Sepsis New/Unexplained Change in Mental Status Sepsis Action Taken by Nursing 10/07/20 01:00 10/07/20 01:10 10/07/20 01:15 Temperature Temperature Source Pulse Rate 60 60 60 Pulse Rate from SpO2 Sensor 60 61 60 Respiratory Rate 21 18 18 Respiratory Effort / Characteristics Respiratory Depth Blood Pressure 91/43 L 92/39 L Blood Pressure Mean 59 56 Pulse Oximetry 94 94 95 Oxygen Delivery Method Sepsis Recent Fever Within 48 Hours Sepsis New/Unexplained Change in Mental Status Sepsis Action Taken by Nursing 10/07/20 01:20 10/07/20 01:30 10/07/20 01:40 Temperature Temperature Source Pulse Rate 60 60 60 Pulse Rate from SpO2 Sensor 60 60 60 Respiratory Rate 19 16 12 Respiratory Effort / Characteristics Respiratory Depth Blood Pressure 95/42 L Blood Pressure Mean 59 Pulse Oximetry 94 93 95 Oxygen Delivery Method Sepsis Recent Fever Within 48 Hours Sepsis New/Unexplained Change in Mental Status Sepsis Action Taken by Nursing 10/07/20 01:45 10/07/20 01:50 10/07/20 02:00 Temperature Temperature Source Pulse Rate 60 60 61 Pulse Rate from SpO2 Sensor 60 60 61 Respiratory Rate 15 14 12 Respiratory Effort / Characteristics Respiratory Depth Blood Pressure 87/41 L 94/53 L Blood Pressure Mean 56 66 Pulse Oximetry 95 96 95 Oxygen Delivery Method Sepsis Recent Fever Within 48 Hours Sepsis New/Unexplained Change in Mental Status Sepsis Action Taken by Nursing 10/07/20 02:10 Temperature Temperature Source Pulse Rate 60 Pulse Rate from SpO2 Sensor 60 Respiratory Rate 15 Respiratory Effort / Characteristics Respiratory Depth Blood Pressure Blood Pressure Mean Pulse Oximetry 92 Oxygen Delivery Method Sepsis Recent Fever Within 48 Hours Sepsis New/Unexplained Change in Mental Status Sepsis Action Taken by [facility] Medications Current Medication List: was personally reviewed by me Laboratory Data Attestation: I reviewed the patient's lab results. Result diagrams: 10/07/20 06:52 10/07/20 06:52 Lab Results 10/06/20 10/06/20 10/06/20 Range/Units 23:00 23:00 23:00 WBC 6.25 (4.8-10.8) K/uL RBC 4.58 (4.2-5.4) M/uL Hgb 13.6 (12.0-16.0) g/dL Hct 40.1 (37-47) % MCV 87.6 (80-100) fL MCH 29.7 (25-34) pg MCHC 33.9 (32-36) g/dL RDW Std Deviation 46.9 H (36.4-46.3) fL RDW Coeff of Aditya 14.5 (11.5-14.5) % Plt Count 160 (130-400) K/uL MPV 10.0 (7.4-10.4) fL Immature Gran % (Auto) 0.2 % Neut % (Auto) 83.2 % Lymph % (Auto) 8.3 % George % (Auto) 7.8 % Eos % (Auto) 0.2 % Baso % (Auto) 0.3 % Neut # (Auto) 5.20 (1.4-6.5) K/uL Lymph # (Auto) 0.52 L (1.2-3.4) K/uL George # (Auto) 0.49 (0.11-0.59) K/uL Eos # (Auto) 0.01 (0-0.5) K/uL Baso # (Auto) 0.02 (0-0.2) K/uL Immature Gran # (Auto) 0.01 (0.00-0.02) K/uL PT 10.9 (9.0-12.0) Seconds INR 1.1 (0.9-1.1) APTT 33.0 H (21.0-31.0) Seconds PTT Ratio 1.3 Sodium 134 L (136-145) mmol/L Potassium 3.5 (3.5-5.1) mmol/L Chloride 102 (98-107) mmol/L Carbon Dioxide 24 (21-32) mmol/L Anion Gap 9.0 (3-11) BUN 14 (7-18) mg/dl Creatinine 0.82 (0.6-1.2) mg/dl Est Cr Clr Drug Dosing 36.4 ml/min Est GFR ( Amer) 77.2 ml/min Est GFR (Non-Af Amer) 66.6 ml/min BUN/Creatinine Ratio 16.9 (10-20) Glucose 111 H (70-99) mg/dl Lactate (0.4-2.0) mmol/L Calcium 8.6 (8.5-10.1) mg/dl Magnesium 2.2 (1.8-2.4) mg/dl Total Bilirubin 0.7 (0.2-1) mg/dl AST 30 (15-37) U/L ALT 29 (12-78) U/L Alkaline Phosphatase 106 (45-117) U/L Troponin I < 0.015 (0-0.045) ng/ml Total Protein 7.3 (6.4-8.2) gm/dl Albumin 3.4 (3.4-5.0) gm/dl Globulin 3.9 (2.5-4.0) gm/dl Albumin/Globulin Ratio 0.9 (0.9-2) Procalcitonin (0-0.5) ng/ml Urine Color Urine Appearance (Clear) Urine pH (4.5-7.5) Ur Specific [place] (1.000-1.030) Urine Protein (Negative) Urine Glucose (UA) (Negative) Urine Ketones (Negative) Urine Blood (Negative) Urine Nitrite (Negative) Urine Bilirubin (Negative) Urine Urobilinogen (Negative) Ur Leukocyte Esterase (Negative) Urine WBC (Auto) (0-5) /hpf Urine RBC (Auto) (0-4) /hpf U Hyaline Cast (Auto) (0-5) /lpf U Epithel Cells (Auto) (0-5) /lpf Urine Bacteria (Auto) (Negative) Urine Yeast Anaplasma Smear See Comment Lyme Disease IgG Ab (Negative) Lyme Disease IgM Ab (Negative) COVID-19 Eval Order SARS-CoV-2 (PCR) (Negative) 10/06/20 10/06/20 10/06/20 Range/Units 23:00 23:00 23:00 WBC (4.8-10.8) K/uL RBC (4.2-5.4) M/uL Hgb (12.0-16.0) g/dL Hct (37-47) % MCV (80-100) fL MCH (25-34) pg MCHC (32-36) g/dL RDW Std Deviation (36.4-46.3) fL RDW Coeff of Aditya (11.5-14.5) % Plt Count (130-400) K/uL MPV (7.4-10.4) fL Immature Gran % (Auto) % Neut % (Auto) % Lymph % (Auto) % George % (Auto) % Eos % (Auto) % Baso % (Auto) % Neut # (Auto) (1.4-6.5) K/uL Lymph # (Auto) (1.2-3.4) K/uL George # (Auto) (0.11-0.59) K/uL Eos # (Auto) (0-0.5) K/uL Baso # (Auto) (0-0.2) K/uL Immature Gran # (Auto) (0.00-0.02) K/uL PT (9.0-12.0) Seconds INR (0.9-1.1) APTT (21.0-31.0) Seconds PTT Ratio Sodium (136-145) mmol/L Potassium (3.5-5.1) mmol/L Chloride (98-107) mmol/L Carbon Dioxide (21-32) mmol/L Anion Gap (3-11) BUN (7-18) mg/dl Creatinine (0.6-1.2) mg/dl Est Cr Clr Drug Dosing ml/min Est GFR ( Amer) ml/min Est GFR (Non-Af Amer) ml/min BUN/Creatinine Ratio (10-20) Glucose (70-99) mg/dl Lactate 1.5 (0.4-2.0) mmol/L Calcium (8.5-10.1) mg/dl Magnesium (1.8-2.4) mg/dl Total Bilirubin (0.2-1) mg/dl AST (15-37) U/L ALT (12-78) U/L Alkaline Phosphatase (45-117) U/L Troponin I (0-0.045) ng/ml Total Protein (6.4-8.2) gm/dl Albumin (3.4-5.0) gm/dl Globulin (2.5-4.0) gm/dl Albumin/Globulin Ratio (0.9-2) Procalcitonin 0.33 (0-0.5) ng/ml Urine Color Yellow Urine Appearance Cloudy A (Clear) Urine pH 5.5 (4.5-7.5) Ur Specific [place] 1.012 (1.000-1.030) Urine Protein 1+ H (Negative) Urine Glucose (UA) Negative (Negative) Urine Ketones Negative (Negative) Urine Blood 1+ H (Negative) Urine Nitrite Negative (Negative) Urine Bilirubin Negative (Negative) Urine Urobilinogen Negative (Negative) Ur Leukocyte Esterase 1+ H (Negative) Urine WBC (Auto) 5-10 H (0-5) /hpf Urine RBC (Auto) 0-4 (0-4) /hpf U Hyaline Cast (Auto) 1-5 (0-5) /lpf U Epithel Cells (Auto) >30 H (0-5) /lpf Urine Bacteria (Auto) Negative (Negative) Urine Yeast Not Reportable Anaplasma Smear Lyme Disease IgG Ab (Negative) Lyme Disease IgM Ab (Negative) COVID-19 Eval Order SARS-CoV-2 (PCR) (Negative) 10/06/20 10/06/20 10/06/20 Range/Units 23:00 23:03 23:03 WBC (4.8-10.8) K/uL RBC (4.2-5.4) M/uL Hgb (12.0-16.0) g/dL Hct (37-47) % MCV (80-100) fL MCH (25-34) pg MCHC (32-36) g/dL RDW Std Deviation (36.4-46.3) fL RDW Coeff of Aditya (11.5-14.5) % Plt Count (130-400) K/uL MPV (7.4-10.4) fL Immature Gran % (Auto) % Neut % (Auto) % Lymph % (Auto) % George % (Auto) % Eos % (Auto) % Baso % (Auto) % Neut # (Auto) (1.4-6.5) K/uL Lymph # (Auto) (1.2-3.4) K/uL George # (Auto) (0.11-0.59) K/uL Eos # (Auto) (0-0.5) K/uL Baso # (Auto) (0-0.2) K/uL Immature Gran # (Auto) (0.00-0.02) K/uL PT (9.0-12.0) Seconds INR (0.9-1.1) APTT (21.0-31.0) Seconds PTT Ratio Sodium (136-145) mmol/L Potassium (3.5-5.1) mmol/L Chloride (98-107) mmol/L Carbon Dioxide (21-32) mmol/L Anion Gap (3-11) BUN (7-18) mg/dl Creatinine (0.6-1.2) mg/dl Est Cr Clr Drug Dosing ml/min Est GFR ( Amer) ml/min Est GFR (Non-Af Amer) ml/min BUN/Creatinine Ratio (10-20) Glucose (70-99) mg/dl Lactate (0.4-2.0) mmol/L Calcium (8.5-10.1) mg/dl Magnesium (1.8-2.4) mg/dl Total Bilirubin (0.2-1) mg/dl AST (15-37) U/L ALT (12-78) U/L Alkaline Phosphatase (45-117) U/L Troponin I (0-0.045) ng/ml Total Protein (6.4-8.2) gm/dl Albumin (3.4-5.0) gm/dl Globulin (2.5-4.0) gm/dl Albumin/Globulin Ratio (0.9-2) Procalcitonin (0-0.5) ng/ml Urine Color Urine Appearance (Clear) Urine pH (4.5-7.5) Ur Specific [place] (1.000-1.030) Urine Protein (Negative) Urine Glucose (UA) (Negative) Urine Ketones (Negative) Urine Blood (Negative) Urine Nitrite (Negative) Urine Bilirubin (Negative) Urine Urobilinogen (Negative) Ur Leukocyte Esterase (Negative) Urine WBC (Auto) (0-5) /hpf Urine RBC (Auto) (0-4) /hpf U Hyaline Cast (Auto) (0-5) /lpf U Epithel Cells (Auto) (0-5) /lpf Urine Bacteria (Auto) (Negative) Urine Yeast Anaplasma Smear Lyme Disease IgG Ab Negative (Negative) Lyme Disease IgM Ab Negative (Negative) COVID-[address] Eval [address] Covid[address] at [facility] SARS-CoV-2 (PCR) NEGATIVE (Negative) Administered Medications Apixaban (Apixaban 2.5 Mg Tab) 2.5 mg PO BID BUFFY Stop: 11/06/20 08:59 Last Admin: 10/07/20 07:24 Dose: 2.5 mg Documented by: [id number] Sodium Chloride (Nss 1000ml) 1,000 mls @ 125 mls/hr IV .Q8H BUFFY Stop: 11/06/20 03:37 Last Admin: 10/07/20 04:31 Dose: 125 mls/hr Documented by: [id number] Doxycycline Hyclate 100 mg/ (Dextrose) 110 mls @ 50 mls/hr IV Q12H BUFFY Stop: 10/17/20 09:59 Last Admin: 10/07/20 10:42 Dose: 50 mls/hr Documented by: [id number] Discontinued Medications Acetaminophen (Acetaminophen 500 Mg Tab) 1,000 mg PO NOW STA Stop: 10/06/20 22:43 Last Admin: 10/06/20 23:12 Dose: 1,000 mg Documented by: [id number] Apixaban (Apixaban 5 Mg Tablet) 5 mg PO ONE ONE Stop: 10/07/20 01:16 Last Admin: 10/07/20 01:35 Dose: 5 mg Documented by: [id number] Sodium Chloride (Nss 1000ml) 500 mls @ 999 mls/hr IV .Q31M ONE Stop: 10/06/20 23:12 Last Infusion: 10/06/20 23:43 Dose: 999 mls/hr Documented by: [id number] Admin: 10/06/20 23:09 Dose: 999 mls/hr Documented by: [id number] Sodium Chloride (Nss 1000ml) 500 mls @ 999 mls/hr IV .Q31M ONE Stop: 10/07/20 00:40 Last Infusion: 10/07/20 01:07 Dose: 999 mls/hr Documented by: [id number] Admin: 10/07/20 00:20 Dose: 999 mls/hr Documented by: [id number] Ceftriaxone Sodium (Rocephin) 1,000 mg in 50 mls @ 100 mls/hr IV NOW STA Stop: 10/07/20 00:41 Last Infusion: 10/07/20 01:07 Dose: 100 mls/hr Documented by: [id number] Admin: 10/07/20 00:20 Dose: 100 mls/hr Documented by: [id number] Sodium Chloride (Nss 1000ml) 500 mls @ 999 mls/hr IV .Q31M ONE Stop: 10/07/20 01:45 Last Infusion: 10/07/20 01:54 Dose: 999 mls/hr Documented by: [id number] Admin: 10/07/20 01:23 Dose: 999 mls/hr Documented by: [id number] Doxycycline Hyclate 100 mg/ (Sodium Chloride) 110 mls @ 50 mls/hr IV NOW STA Stop: 10/07/20 06:09 Last Admin: 10/07/20 04:27 Dose: 50 mls/hr Documented by: [id number] Ioversol (Optiray 320 100ml) 88 ml IV ONCE ONE Stop: 10/07/20 00:36 Last Admin: 10/07/20 00:36 Dose: 1 ml Documented by: [id number] Imaging Data Radiologist's Impression: Abdomen/Pelvis CT 10/07/20 00:16 CT abd pelvis IV con only CLINICAL HISTORY: fever COMPARISON STUDY: None. TECHNIQUE: Patient was scanned in a dynamic helical fashion during intravenous administration of 88 cc of Optiray 320 A dose lowering technique was utilized adhering to the principles of ALARA. CT DOSE: 219.39 mGy.cm FINDINGS: Lower chest: There are mild dependent atelectatic changes. Cardiolite electrodes are visualized. There are no pleural effusions. There is a small pericardial effusion. Liver: The contrast-enhanced liver is normal in size, contour, and attenuation. There is no intrahepatic biliary ductal dilatation. The hepatic veins and portal veins are patent. Gallbladder: Contracted Spleen: Normal in size and attenuation. Pancreas: Unremarkable. Adrenal glands: Unremarkable. Kidneys: There is symmetric renal cortical enhancement. The kidneys are normal in size without hydronephrosis. Bowel: There are no transition zones indicate bowel obstruction. There is a moderate colonic fecal load. There is colonic diverticulosis. There is no evidence of acute diverticulitis. The appendix is not visualized with certainty. There are however no findings viewed as suspicious for acute appendicitis. Peritoneum: There is no free air. There is trace free fluid. There is a tiny fat-containing right inguinal hernia. Vasculature: The abdominal aorta is normal in course and caliber. Adenopathy: r there is a mildly prominent 15 mm right inguinal lymph node. Pelvic viscera: There are prominent periuterine vessels. There are no pathologic adnexal masses. Skeletal structures: The bones are osteopenic. No destructive lesions are visu alized. There is a subcutaneous nodule within the left back likely representing a sebaceous cyst IMPRESSION: 1. No evidence of bowel obstruction. No evidence of free air 2. No evidence of acute diverticulitis. No evidence of acute appendicitis 3. Moderate fecal load 4. Prominent right inguinal lymph node 5. Prominent periuterine vessels ACT 112: Negative or not required by law. Electronically signed by: Hayden Casas M.D. 10/07/2020 6:40 AM Patient: WILLIE POOL (Female) : 36 Status: ER Date: 10/07/20 00:37 Room #: History: fever appen pres per pt Slices: [id number] Priors: Tech: Jonathan Diggs @ [phone] Exams: CT ABDOMEN & PELVIS With Contrast Contrast: IV Amt: 88 ml optiray Accession Numbers: [id number] Preliminary Findings Only See Final Report For Complete Findings CT ABDOMEN & PELVIS With Contrast: Fluid and air in the small bowel, query ileus or enteritis. Moderate stool in the colon. Pericardial effusion measures approximately 1 cm in thickness. Prominent periuterine vessels, can be seen with pelvic congestion syndrome. Right renal pelviectasis or extrarenal pelvis. Prominent right inguinal lymph node. Additional incidental findings. Radiologist: Kaur Cha M.D. Study ready at 00:43 and initial results transmitted at 01:32 Discharge Plan Visit Data Chief Complaint: Stroke/CVA Symptoms Stated Complaint: STROKE SX/HEADACHE ED Provider: Dony Griffith Discharge Problem: Fever, AMS (altered mental status), Acute UTI (urinary tract infection), Acute hypotension Patient Disposition: Admitted As Inpatient Condition: Good Discharge Instructions Interventions: ED Discharge Assessment Last Done: 10/07/20 02:59 Discharge Problem: Fever Qualifiers: Fever type: unspecified Qualified Code(s): R50.9 - Fever, unspecified AMS (altered mental status) Qualifiers: Altered mental status type: unspecified Qualified Code(s): R41.82 - Altered mental status, unspecified
[2020-10-07 00:04] LABS: RBC Urine Automated 0-4 /hpf (0-4)
[2020-10-07] MEDS ORDERED: SODIUM CHLORIDE 0.9% 1000ML 500 ML IV ONE ×2 (00:10→01:15)
[2020-10-07] MEDS ORDERED: cefTRIAXone SODIUM 1,000 MG/50 ML BAG IV STA (00:12)
[2020-10-07] MEDS ORDERED: OPTIRAY 320 100ml IV ONE (00:35)
[2020-10-07] MEDS ORDERED: APIXABAN 5 MG TABLET PO ONE (01:15)
[2020-10-07 01:46] LABS: Lyme Ab IgG w/WB Rflx Negative (Negative); Lyme Ab IgM w/WB Rflx Negative (Negative)
[2020-10-07] MEDS ORDERED: ONDANSETRON INJ 2 MG/ML 2 ML VIAL IV PRN (03:38)
[2020-10-07] MEDS ORDERED: ACETAMINOPHEN 325 MG TAB PO PRN (03:38)
[2020-10-07] MEDS ORDERED: DOXYCYCLINE HYCLATE 100 MG in DEXTROSE 5% 100 ML IV STA (03:38)
[2020-10-07] MEDS ORDERED: NITROGLYCERIN SL 0.4 MG/TAB TAB SL PRN (03:38)
--- NOTE | 2020-10-07 03:47 | History and Physical Report ---
DATE OF ADMISSION: 10/07/2020 CHIEF COMPLAINT: Confusion and headache. HISTORY OF PRESENT ILLNESS: This is an 80-year-old female with past medical history significant for hypothyroidism, not on any medications, hyperlipidemia, atrial fibrillation, hypertension, who lives with her son, ambulates without any support, was brought in because she was having lot of headaches and confusion at home. The son thought she had a stroke and EMS was called. When EMS came, her mental status was back at baseline, but she was having temperature spikes, so she was brought in here. In the ER, T-max was 39.4, blood pressure was running low, systolic blood pressure between 90s and 80s even after the fluid bolus. There is no white count. Her leukocyte esterase was +1, positive. Son states she had a tick bite about 3 weeks ago, but her Lyme screen is negative and anaplasmosis is negative. SARS-CoV-2 PCR is negative. Chest x-ray, no airspace consolidation or large pleural effusion is identified. CT of the head was no acute findings. CT of abdomen and pelvis preliminary report, question of ileus or enteritis. Moderate stool in the colon, pericardial effusion measures approximately 1 cm thickness. The patient is currently somewhat drowsy but answers appropriately. Denies any chest pain. Denies any shortness of breath. Denies any cough, no blurred vision, no earache, no runny nose, no sore throat.As per son since her in April she is not eating much, but she can swallow okay, eats regular diet. No nausea, no vomiting. She has chronic diarrhea. She denies any burning micturition. Says her edema in the leg is chronic. ALLERGIES: EGGS, NITROFURANTOIN, ADHESIVE TAPE, CLINDAMYCIN, PENICILLINS. PAST MEDICAL HISTORY: As mentioned above. PAST SURGICAL HISTORY: Right total knee arthroplasty, endovascular ablation therapy second vein, bilateral insertion of lens prosthesis, pacemaker defibrillator insertion. MEDICATIONS: She takes Eliquis 2.5 mg p.o. b.i.d., Tylenol p.r.n. FAMILY HISTORY: Significant for mother had colon cancer, at age of 101. Father had heart disease, at the age of 71. Mother has macular degeneration. SOCIAL HISTORY: , lives with her son. No smoking. No alcohol use, no drug use. REVIEW OF SYMPTOMS: As per HPI. Rest of review of systems negative. PHYSICAL EXAMINATION: GENERAL: The patient is old and frail, not in acute distress. Somewhat drowsy. VITAL SIGNS: Temperature 39.4, pulse 60, respiratory rate 14, blood pressure 87/41, oxygen 96% room air. HEENT: Pupils equal, round, reactive to light. NECK: No JVD, no neck masses. Oral mucosa is dry. CARDIOVASCULAR: S1, S2 heard, regular rate and rhythm, no murmur, no gallop. RESPIRATORY SYSTEM: Normal AP diameter. No accessory muscle use. No wheezing, no crackles. ABDOMEN: Soft, bowel sounds present, nontender. No distention. CENTRAL NERVOUS SYSTEM: Cranial nerves II-XII grossly intact. Nonfocal. EXTREMITIES: Bilateral pedal edema present, no erythema seen. LABORATORY DATA: WBC 6.2, hemoglobin 13.6, hematocrit 40.1, platelets 160, PT 10.9, INR 1.1, APTT 33. Sodium 134, potassium 3.5, chloride 102, bicarbonate 24, BUN 14, creatinine 0.8, serum glucose 111, lactate 1.5, calcium 8.62, magnesium 2.2, total bilirubin 0.7, AST 30, ALT 29, alkaline phosphatase 106. Troponin I less than 0.015. Procalcitonin 0.33. Urinalysis positive for leukocyte esterase +1, urine bacteria negative. Anaplasmosis screen unremarkable. Lyme screen negative. SARS-CoV-2 PCR negative. IMAGING: CT of abdomen and pelvis, possible enteritis versus ileus. CT of the head, no acute findings. Chest x-ray, no acute findings. EKG: Atrial paced rhythm at a rate of 56, no significant change was found. ASSESSMENT AND PLAN: An 80-year-old female presents with confusion, headache and found to be in sepsis. 1. Sepsis, confusion, headache, metabolic encephalopathy, sepsis, hypotension, high fevers. Possible source UTI. The patient had a tick bite 3 weeks ago per her son, but so far Lyme screen is negative and anaplasmosis is negative, but we will wait for final anaplasmosis studies.Continue Rocephin and also add doxycycline, . We will follow the blood pressure closely and monitor in tele floor and follow the cultures. 2. History of atrial fibrillation. The patient is only on Eliquis. Not on on any rate controlling medication. We will monitor in the tele. 3. History of hypertension, hyperlipidemia, hypothyroidism, not on any medications. 4. Pericardial effusion on ct scan. will follow echo. 5. Deep venous thrombosis prophylaxis. The patient is on Eliquis. DISPOSITION: Closely monitor in tele floor. Level 1 full code as per my discussion with son. PT and OT prior to discharge. Social service to help with discharge planning. CHELSIE
[2020-10-07] MEDS ORDERED: DOXYCYCLINE HYCLATE 100 MG in 0.9 % SODIUM CHLORIDE 100 ML IV STA (03:58)
[2020-10-07] MEDS: SODIUM CHLORIDE 0.9% 1000ML 1,000 ML IV SCH ×2 (04:31→15:53)
--- NOTE | 2020-10-07 06:42 | CT Scan Report ---
CT abd pelvis IV con only CLINICAL HISTORY: fever COMPARISON STUDY: None. TECHNIQUE: Patient was scanned in a dynamic helical fashion during intravenous administration of 88 c c of Optiray 320 A dose lowering technique was utilized adhering to the principles of ALARA. CT DOSE: 219.39 mGy.cm FINDINGS: Lower chest: There are mild dependent atelectatic changes. Cardiolite electrodes are visualized. Ther e are no pleural effusions. There is a small pericardial effusion. Liver: The contrast-enhanced liver is normal in size, contour, and attenuation. There is no intrahepa tic biliary ductal dilatation. The hepatic veins and portal veins are patent. Gallbladder: Contracted Spleen: Normal in size and attenuation. Pancreas: Unremarkable. Adrenal glands: Unremarkable. Kidneys: There is symmetric renal cortical enhancement. The kidneys are normal in size without hydron ephrosis. Bowel: There are no transition zones indicate bowel obstruction. There is a moderate colonic fecal lo ad. There is colonic diverticulosis. There is no evidence of acute diverticulitis. The appendix is no t visualized with certainty. There are however no findings viewed as suspicious for acute appendiciti s. Peritoneum: There is no free air. There is trace free fluid. There is a tiny fat-containing right ing uinal hernia. Vasculature: The abdominal aorta is normal in course and caliber. Adenopathy: r there is a mildly prominent 15 mm right inguinal lymph node. Pelvic viscera: There are prominent periuterine vessels. There are no pathologic adnexal masses. Skeletal structures: The bones are osteopenic. No destructive lesions are visualized. There is a subc utaneous nodule within the left back likely representing a sebaceous cyst IMPRESSION: 1. No evidence of bowel obstruction. No evidence of free air 2. No evidence of acute diverticulitis. No evidence of acute appendicitis 3. Moderate fecal load 4. Prominent right inguinal lymph node 5. Prominent periuterine vessels ACT 112: Negative or not required by law. Electronically signed by: Hayden Casas M.D. 10/07/2020 6:40 AM
[2020-10-07 07:07] LABS: Basophils # (auto) 0.01 K/uL (0-0.2); Basophils % (auto) 0.2 %; Hematocrit (blood only) 38.6 % (37-47); Immature Granulocytes # (auto) 0.01 K/uL (0.00-0.02); Immature Granulocytes % (auto) 0.2 %; Lymphocytes % (auto) 3.6 %; Mean Corpuscular Hemoglobin 29.9 pg (25-34); Mean Corpuscular Hgb Conc 33.7 g/dL (32-36); Mean Corpuscular Volume 88.7 fL (80-100); Mean Platelet Volume 10.1 fL (7.4-10.4); Monocytes # (auto) 0.24 K/uL (0.11-0.59); Monocytes % (auto) 4.3 %; Neutrophils # (auto) 5.06 K/uL (1.4-6.5); Neutrophils % (auto) 91.7 %; Platelet Count 156 K/uL (130-400); RDW Coefficient of Variation 14.4 % (11.5-14.5); RDW Standard Deviation 47.5 fL (36.4-46.3); Red Blood Count 4.35 M/uL (4.2-5.4); White Blood Count 5.52 K/uL (4.8-10.8)
[2020-10-07] MEDS: APIXABAN 2.5 MG TAB PO SCH ×2 (07:24→20:15)
[2020-10-07 07:43] LABS: BUN Creatinine Ratio 16.4 (10-20); Calcium 8.4 mg/dl (8.5-10.1); Est GFR (African American) 98.9 ml/min; Est GFR (Non-African American) 85.4 ml/min; Magnesium 2.1 mg/dl (1.8-2.4); Potassium 3.5 mmol/L (3.5-5.1)
--- NOTE | 2020-10-07 10:10 | Electrocardiogram Report ---
Test Reason : Blood Pressure : / mmHG Vent. Rate : 060 BPM Atrial Rate : 060 BPM P-R Int : 180 ms QRS Dur : 070 ms QT Int : 410 ms P-R-T Axes : 075 -25 039 degrees QTc Int : 410 ms Poor data quality, interpretation may be adversely affected Atrial-paced rhythm Abnormal ECG When compared with ECG of 15-APR-2018 19:16, No significant change was found Confirmed by Duane Moralez ([id number]) on 10/07/2020 10:10:39 AM Referred By: REFERRED SELF Confirmed By:Duane Moralez
--- NOTE | 2020-10-07 10:19 | Electrocardiogram Report ---
Test Reason : Blood Pressure : / mmHG Vent. Rate : 060 BPM Atrial Rate : 060 BPM P-R Int : 182 ms QRS Dur : 076 ms QT Int : 418 ms P-R-T Axes : 013 047 043 degrees QTc Int : 418 ms Atrial-paced rhythm Nonspecific T wave abnormality Abnormal ECG When compared with ECG of 06-OCT-2020 23:09, (unconfirmed) Nonspecific T wave abnormality, worse in Lateral leads Confirmed by Duane Moralez ([id number]) on 10/07/2020 10:19:04 AM Referred By: REFERRED SELF Confirmed By:Duane Moralez
[2020-10-07] MEDS: DOXYCYCLINE HYCLATE 100 MG in DEXTROSE 5% 100 ML IV SCH ×2 (10:42→22:24)
[2020-10-07] MEDS ORDERED: cefTRIAXone SODIUM 2 MG in DEXTROSE 5% 50 ML IV SCH (22:00)
[2020-10-07] MEDS: cefTRIAXone SODIUM 2,000 MG in DEXTROSE 5% 50 ML IV SCH (22:24)
[2020-10-08] MEDS: SODIUM CHLORIDE 0.9% 1000ML 1,000 ML IV SCH ×4 (02:00→17:03)
[2020-10-08 07:08] LABS: Basophils # (auto) 0.02 K/uL (0-0.2); Basophils % (auto) 0.5 %; Eosinophils # (auto) 0.04 K/uL (0-0.5); Eosinophils % (auto) 1.1 %; Hematocrit (blood only) 36.1 % (37-47); Hemoglobin 11.8 g/dL (12.0-16.0); Lymphocytes % (auto) 10.7 %; Mean Corpuscular Hemoglobin 29.2 pg (25-34); Mean Corpuscular Hgb Conc 32.7 g/dL (32-36); Mean Corpuscular Volume 89.4 fL (80-100); Mean Platelet Volume 10.5 fL (7.4-10.4); Neutrophils # (auto) 2.97 K/uL (1.4-6.5); Neutrophils % (auto) 79.7 %; Platelet Count 162 K/uL (130-400); RDW Coefficient of Variation 14.9 % (11.5-14.5); Red Blood Count 4.04 M/uL (4.2-5.4); White Blood Count 3.73 K/uL (4.8-10.8)
[2020-10-08 07:33] LABS: Albumin Level 2.2 gm/dl (3.4-5.0); Calcium 7.3 mg/dl (8.5-10.1); Creatinine Clr Calc Pharmacy 44.3 ml/min; Est GFR (African American) 95.8 ml/min; Est GFR (Non-African American) 82.7 ml/min; Potassium 3.4 mmol/L (3.5-5.1)
[2020-10-08 07:43] LABS: Albumin Globulin Ratio 0.7 (0.9-2); Bilirubin,Total 0.4 mg/dl (0.2-1); Total Protein 5.2 gm/dl (6.4-8.2)
[2020-10-08] MEDS: APIXABAN 2.5 MG TAB PO SCH ×2 (08:07→21:06)
--- NOTE | 2020-10-08 08:32 | Hospitalist Progress Note ---
Date of Service October 08, 2020 Assessment & Plan (1) Acute UTI (urinary tract infection): ASSESSMENT AND PLAN: An 80-year-old female presents with confusion, headache and found to be septic. 1. Sepsis, confusion, headache, metabolic encephalopathy, sepsis, hypotension, high fevers. Possible source UTI. The patient had a tick bite 3 weeks ago per her son, but so far Lyme screen is negative and anaplasmosis is negative, but we will wait for final anaplasmosis studies.Continue Rocephin and also add doxycycline, . We will follow the blood pressure closely and monitor in tele floor and follow the cultures. 2. History of atrial fibrillation. The patient is only on Eliquis. Not on on any rate controlling medication. We will monitor in the tele. 3. History of hypertension, hyperlipidemia, hypothyroidism, not on any medications. 4. Pericardial effusion on ct scan. will follow echo. 5. Deep venous thrombosis prophylaxis. The patient is on Eliquis. Labs Checked ROS-No Headache, No Visual Changes, No Nausea, No Vomiting, No Fever, No Chills, No Neck Pain or Stiffness, No Chest Pain, No Palpitations, No SOB, No FITZGERALD, No Cough, No Sputum, No Wheezing, No Abdominal Pain, No Diarrhea, No Hematemesis, No Hemoptysis, No Unexpected Weight Loss, No Flank pain, No Melena, No Hematochezia, No Frequency, No Urgency, No Burning, No Hematuria, No Rashes, No Diaphoresis. Appetite is Normal Physical Exam Gen-AAO x 2, NAD, Afebrile Confused Head-NCAT, EOMI, PERRLA, Anicteric Sclera, No Posterior Pharyngeal Erythema Neck-Supple, No JVD, No Thyromegaly, No Masses, No LAD, No Bruits Lungs-Clear to Auscultation Bilaterally, No Rales, No Rhonchi, No Wheezing, No Crepitus Chest-No S4, +S1, +S2, No S3, No Murmurs, No Rubs, No Gallops, No Ectopy Abdomen-Soft, Bowel Sounds Present, Non Tender, Non Distended, No Hepatomegaly, No Splenomegaly, No Palpable Masses, No Rebound, No Rigidity, No Guarding Musculoskeletal-Full Range of Motion Bilaterally, No CVAT Extremities-No Cyanosis, No Clubbing, No Edema Nuero-Cranial Nerves II-XII grossly intact, Motor WNL, DTRs WNL, Strength WNL, Non Focal Psych-Normal Mood Admission and Anticipated Discharge Date Admission Date: October 07, 2020 Results & Data Results & Data ([facility]) Vital Signs (Past 12 Hours) Vital Signs Temp Pulse Pulse Resp BP Pulse Ox 10/08/20 07:49 36.8 C 86 18 124/69 95 10/08/20 07:15 60 10/08/20 02:56 37.2 C 89 19 119/58 L 92 10/07/20 23:59 60 10/07/20 22:55 37.4 C 61 18 105/54 L 96
[2020-10-08] MEDS: DOXYCYCLINE HYCLATE 100 MG in DEXTROSE 5% 100 ML IV SCH ×2 (09:30→21:06)
[2020-10-08] MEDS: POTASSIUM CHLORIDE 20 MEQ/15 ML UDC PO SCH ×2 (09:48→21:06)
[2020-10-08] MEDS: cefTRIAXone SODIUM 2,000 MG in DEXTROSE 5% 50 ML IV SCH (22:15)
[2020-10-09] MEDS: SODIUM CHLORIDE 0.9% 1000ML 1,000 ML IV SCH (03:13)
[2020-10-09 07:32] LABS: Basophils # (auto) 0.03 K/uL (0-0.2); Basophils % (auto) 0.8 %; Eosinophils # (auto) 0.18 K/uL (0-0.5); Eosinophils % (auto) 4.5 %; Hematocrit (blood only) 37.6 % (37-47); Hemoglobin 12.5 g/dL (12.0-16.0); Immature Granulocytes # (auto) 0.01 K/uL (0.00-0.02); Immature Granulocytes % (auto) 0.3 %; Lymphocytes # (auto) 0.71 K/uL (1.2-3.4); Lymphocytes % (auto) 17.9 %; Mean Corpuscular Hemoglobin 29.1 pg (25-34); Mean Corpuscular Hgb Conc 33.2 g/dL (32-36); Mean Corpuscular Volume 87.6 fL (80-100); Mean Platelet Volume 10.7 fL (7.4-10.4); Monocytes # (auto) 0.41 K/uL (0.11-0.59); Monocytes % (auto) 10.4 %; Neutrophils # (auto) 2.62 K/uL (1.4-6.5); Neutrophils % (auto) 66.1 %; Platelet Count 180 K/uL (130-400); RDW Coefficient of Variation 15.1 % (11.5-14.5); RDW Standard Deviation 48.7 fL (36.4-46.3); Red Blood Count 4.29 M/uL (4.2-5.4); White Blood Count 3.96 K/uL (4.8-10.8)
[2020-10-09 08:13] LABS: Albumin Level 2.2 gm/dl (3.4-5.0); BUN Creatinine Ratio 14.5 (10-20); Calcium 8.3 mg/dl (8.5-10.1); Creatinine Clr Calc Pharmacy 41.3 ml/min; Est GFR (African American) 87.4 ml/min; Est GFR (Non-African American) 75.4 ml/min; Potassium 3.6 mmol/L (3.5-5.1)
[2020-10-09 08:16] LABS: Albumin Globulin Ratio 0.6 (0.9-2); Bilirubin,Total 0.2 mg/dl (0.2-1); Globulin 3.4 gm/dl (2.5-4.0); Total Protein 5.6 gm/dl (6.4-8.2)
[2020-10-09] MEDS: POTASSIUM CHLORIDE 20 MEQ/15 ML UDC PO SCH ×2 (08:21→20:48)
[2020-10-09] MEDS: APIXABAN 2.5 MG TAB PO SCH ×2 (08:21→20:49)
[2020-10-09] MEDS: DOXYCYCLINE HYCLATE 100 MG in DEXTROSE 5% 100 ML IV SCH ×2 (10:47→20:50)
[2020-10-09] MEDS ORDERED: Nursing to Pharmacy Communication SCH (11:00)
--- NOTE | 2020-10-09 13:58 | Hospitalist Progress Note ---
Date of Service October 09, 2020 Assessment & Plan (1) Acute UTI (urinary tract infection): ASSESSMENT AND PLAN: An 80-year-old female presents with confusion, headache and found to be septic. 1. Sepsis, confusion, headache, metabolic encephalopathy, hypotension, high fevers --The patient had a tick bite 3 weeks ago per her son -- afebrile x 2 days, BP stable overall urine culture: negative so far blood cultures: negative so far --Lyme screen Negative Anaplasmosis PCR: pending -- ID consult pending -- seems to be responding to Ceftri + DOxy IV, continue for now 2. History of atrial fibrillation. The patient is only on Eliquis. Not on on any rate controlling medication. 3. History of hypertension, hyperlipidemia, hypothyroidism -- not on any medications. 4. Pericardial effusion on ct scan. -- Echo noted, small pericardial effusion asymptomatic 5. Deep venous thrombosis prophylaxis. -- The patient is on Eliquis. plan of care discussed with patient and her son in detail and at length all questions answered they are understanding, agreeable, comfortable with the plan of care Admission and Anticipated Discharge Date Admission Date: October 07, 2020 Subjective ff up for fever etc seen resting in bed, comfortable states states she feels fine overall oriented x 3, answers all questions appropriately no headache, dizziness, sore throat, cough, dyspnea, chest pain, palpitations, abdominal pain ,nausea, problems with BM or urination no fever/chills no joint pain denies any other symptoms Review of Systems Review of Systems: All systems reviewed & are unremarkable except as noted in Subjective Physical Exam Physical Exam: General- oriented x 3, not in distress, speaks in sentences with no effort or accessory muscle use Head- atraumatic Eyes- PERRL, EOMI, anicteric ENT- oropharynx clear Neck- supple, no JVD, no adenopathy, no thyromegaly; carotids +2/2, no bruits appreciated Lungs- clear to auscultation bilaterally, no rales/wheezes Heart- normal rate, regular rhythm; no murmur, no gallop, no rub appreciated Abdomen- normal bowel sounds, nondistended, soft, nontender, no masses or hepatosplenomegaly Extremities- no pretibial edema, no calf tenderness; peripheral pulses intact Neuro- alert, oriented x 3; CN 2-12 grossly intact; motor 5/5 bilaterally;sensation 100% on all extremities; no other gross focal neurologic deficits Skin- warm & dry Results & Data Results & Data ([facility]) Vital Signs (Past 12 Hours) Vital Signs Temp Pulse Pulse Resp BP Pulse Ox 10/09/20 12:01 36.4 C L 63 18 124/71 95 10/09/20 08:34 60 10/09/20 07:45 36.8 C 65 18 118/62 94 10/09/20 03:28 36.9 C 65 18 120/66 94 Laboratory Results Laboratory Results - last 24 hr 10/09/20 10/09/20 07:04 07:04 WBC 3.96 L RBC 4.29 Hgb 12.5 Hct 37.6 MCV 87.6 MCH 29.1 MCHC 33.2 RDW Std Deviation 48.7 H RDW Coeff of Aditya 15.1 H Plt Count 180 MPV 10.7 H Immature Gran % (Auto) 0.3 Neut % (Auto) 66.1 Lymph % (Auto) 17.9 [place] % (Auto) 10.4 Eos % (Auto) 4.5 Baso % (Auto) 0.8 Neut # (Auto) 2.62 Lymph # (Auto) 0.71 L [place] # (Auto) 0.41 Eos # (Auto) 0.18 Baso # (Auto) 0.03 Immature Gran # (Auto) 0.01 Sodium 143 Potassium 3.6 Chloride 117 H Carbon Dioxide 19 L Anion Gap 8.0 BUN 11 Creatinine 0.74 Est Cr Clr Drug Dosing 41.3 Est GFR ( Amer) 87.4 Est GFR (Non-Af Amer) 75.4 BUN/Creatinine Ratio 14.5 Glucose 118 H Calcium 8.3 L Total Bilirubin 0.2 AST 24 ALT 33 Alkaline Phosphatase 87 Total Protein 5.6 L Albumin 2.2 L Globulin 3.4 Albumin/Globulin Ratio 0.6 L
[2020-10-09] MEDS: HYDROCORTISONE HC 2.5% CRM 30GM TUBE EXT SCH (20:49)
[2020-10-09] MEDS: cefTRIAXone SODIUM 2,000 MG in DEXTROSE 5% 50 ML IV SCH (22:58)
[2020-10-10] MEDS: POTASSIUM CHLORIDE 20 MEQ/15 ML UDC PO SCH (08:03)
[2020-10-10] MEDS: APIXABAN 2.5 MG TAB PO SCH (08:03)
[2020-10-10] MEDS: HYDROCORTISONE HC 2.5% CRM 30GM TUBE EXT SCH (08:04)
--- NOTE | 2020-10-10 10:39 | Discharge Summary ---
Date of Service October 10, 2020 Admission HPI Per Admitting Provider 80-year-old female with past medical history significant for hypothyroidism, not on any medications, hyperlipidemia, atrial fibrillation, hypertension, who lives with her son, ambulates without any support, was brought in because she was having lot of headaches and confusion at home. The son thought she had a stroke and EMS was called. When EMS came, her mental status was back at baseline, but she was having temperature spikes, so she was brought in here. In the ER, T-max was 39.4, blood pressure was running low, systolic blood pressure between 90s and 80s even after the fluid bolus. There is no white count. Her leukocyte esterase was +1, positive. Son states she had a tick bite about 3 weeks ago, but her Lyme screen is negative and anaplasmosis is negative. SARS-CoV-2 PCR is negative. Chest x-ray, no airspace consolidation or large pleural effusion is identified. CT of the head was no acute findings. CT of abdomen and pelvis preliminary report, question of ileus or enteritis. Moderate stool in the colon, pericardial effusion measures approximately 1 cm thickness. The patient is currently somewhat drowsy but answers appropriately. Denies any chest pain. Denies any shortness of breath. Denies any cough, no blurred vision, no earache, no runny nose, no sore throat.As per son since her in April she is not eating much, but she can swallow okay, eats regular diet. No nausea, no vomiting. She has chronic diarrhea. She denies any burning micturition. Says her edema in the leg is chronic. Admission Exam Per Admitting Provider PHYSICAL EXAMINATION: GENERAL: The patient is old and frail, not in acute distress. Somewhat drowsy. VITAL SIGNS: Temperature 39.4, pulse 60, respiratory rate 14, blood pressure 87/41, oxygen 96% room air. HEENT: Pupils equal, round, reactive to light. NECK: No JVD, no neck masses. Oral mucosa is dry. CARDIOVASCULAR: S1, S2 heard, regular rate and rhythm, no murmur, no gallop. RESPIRATORY SYSTEM: Normal AP diameter. No accessory muscle use. No wheezing, no crackles. ABDOMEN: Soft, bowel sounds present, nontender. No distention. CENTRAL NERVOUS SYSTEM: Cranial nerves II-XII grossly intact. Nonfocal. EXTREMITIES: Bilateral pedal edema present, no erythema seen. Principal Diagnosis Acute UTI (urinary tract infection): Sepsis, confusion, headache, metabolic encephalopathy, hypotension, high fevers Tick bite 3 weeks ago per her son History of atrial fibrillation. The patient is only on Eliquis. Not on on any rate controlling medication. History of hypertension, hyperlipidemia, hypothyroidism Pericardial effusion on ct scan Discharge Exam ROS-No Headache, No Visual Changes, No Nausea, No Vomiting, No Fever, No Chills, No Neck Pain or Stiffness, No Chest Pain, No Palpitations, No SOB, No FITZGERALD, No Cough, No Sputum, No Wheezing, No Abdominal Pain, No Diarrhea, No Hematemesis, No Hemoptysis, No Unexpected Weight Loss, No Flank pain, No Melena, No Hematochezia, No Frequency, No Urgency, No Burning, No Hematuria, No Rashes, No Diaphoresis. Appetite is Normal Physical Exam Gen-AAO x 3, NAD, Afebrile Head-NCAT, EOMI, PERRLA, Anicteric Sclera, No Posterior Pharyngeal Erythema Neck-Supple, No JVD, No Thyromegaly, No Masses, No LAD, No Bruits Lungs-Clear to Auscultation Bilaterally, No Rales, No Rhonchi, No Wheezing, No Crepitus Chest-No S4, +S1, +S2, No S3, No Murmurs, No Rubs, No Gallops, No Ectopy Abdomen-Soft, Bowel Sounds Present, Non Tender, Non Distended, No Hepatomegaly, No Splenomegaly, No Palpable Masses, No Rebound, No Rigidity, No Guarding Musculoskeletal-Full Range of Motion Bilaterally, No CVAT Extremities-No Cyanosis, No Clubbing, No Edema Nuero-Cranial Nerves II-XII grossly intact, Motor WNL, DTRs WNL, Strength WNL, Non Focal Psych-Normal Mood Discharge Data Allergies Allergy/AdvReac Type Severity Reaction Status Date / Time nitrofurantoin AdvReac Intermediate dizziness Verified 10/06/20 22:44 [From Macrodantin] adhesive tape AdvReac Mild skin Verified 10/06/20 22:44 irritation clindamycin AdvReac Mild GI upset Verified 10/06/20 22:44 Penicillins AdvReac Mild GI upset Verified 10/06/20 22:44 Consultations 10/07/20 01:20 ED Decision to Admit Stat 10/09/20 08:48 Consult Infectious Diseases Routine Ordered Studies 10/06/20 22:42 CT head/brain wo con Stat 10/07/20 00:16 CT abd pelvis IV con only Urgent Current Diagnoses Urinary tract infection, site not specified (10/07/20) Allergies nitrofurantoin [From Macrodantin] Adverse Reaction (Intermediate, Verified 10/06/20 22:44) dizziness adhesive tape Adverse Reaction (Mild, Verified 10/06/20 22:44) skin irritation clindamycin Adverse Reaction (Mild, Verified 10/06/20 22:44) GI upset Penicillins Adverse Reaction (Mild, Verified 10/06/20 22:44) GI upset Height/Weight/Isolation Height 4 ft 9 in Weight 54 kg Chemistry 10/09/20 07:04 Sodium 143 Potassium 3.6 Chloride 117 H Carbon Dioxide 19 L Anion Gap 8.0 BUN 11 Creatinine 0.74 Glucose 118 H Microbiology 10/06/20 23:00 Blood Aerobic Blood Culture - Preliminary No growth in Aerobic bottle after 48 hours. 10/06/20 23:00 Blood Anaerobic Blood Culture - Preliminary No growth in Anaerobic bottle after 48 hours. 10/06/20 23:00 Blood Aerobic Blood Culture - Preliminary No growth in Aerobic bottle after 48 hours. 10/06/20 23:00 Blood Anaerobic Blood Culture - Preliminary No growth in Anaerobic bottle after 48 hours. 10/06/20 23:00 Urine,Clean Catch Urine Culture - Final More than three types of organisms present, all moderate counts mixed probable skin jimbo. No further identifications or sensitivities to follow. Hospital Course (1) Acute UTI (urinary tract infection): ASSESSMENT AND PLAN: An 80-year-old female presents with confusion, headache and found to be septic. 1. Sepsis, confusion, headache, metabolic encephalopathy, hypotension, high fevers --The patient had a tick bite 3 weeks ago per her son -- afebrile x 2 days, BP stable overall urine culture: negative so far blood cultures: negative so far --Lyme screen Negative Anaplasmosis PCR: pending -- seems to be responding to Ceftri + DOxy IV, DC on Omnicef and Doxy total 14 days 2. History of atrial fibrillation. The patient is only on Eliquis. Not on on any rate controlling medication. 3. History of hypertension, hyperlipidemia, hypothyroidism -- not on any medications. 4. Pericardial effusion on ct scan. -- Echo noted, small pericardial effusion asymptomatic 5. Deep venous thrombosis prophylaxis. -- The patient is on Eliquis. DC home c HHC, HPT/OT, Safety checks I certify that this patient is under my care and that I, or a physicians curatorial assistant working with me, had a face to-face encounter that meets the home health rnum-ea-bdoy encounter requirements with this patient. The encounter with the patient was in whole, or in part, for the following medical condition, which is the primary reason for home health care (list medical condition): I certify that, based on my findings, the following services are medically necessary home health services: My clinical findings support the need for the above services because: OT Assess ADL Status and Restore Function w ADLs PT Assessment for Endurance / Balance / Strength Skilled Nsg Assessment, Safety Checks Further, I certify that my clinical findings support that this patient is homebound (i.e. absences from home require considerable and taxing effort and are for medical reasons or [facility] or infrequently or of short duration when for other reasons) because: Assistance of 1 Person for Ambulation/Activities Certification for Home Health Services: Based on the above findings, I certify that this patient is confined to the home and needs intermittent [facility] care, physical therapy and/or speech therapy or continues to need occupational therapy. The patient is under my care, and I have initiated the establishment of the plan of care. This patient will be followed by a physician who will periodically review the plan of care. Total Time Total Time Spent Total Time Spent (In Minutes): 45 mins Total Time Includes: Examination of the Patient, Discharge Planning, Medication Reconciliation and Communication With Other Providers Discharge Plan Discharge Items Patient Disposition: Home - Home Health Services Reason For Visit: HEADACHE, CONFUSION Discharge Diagnosis: Acute UTI (urinary tract infection): Sepsis, confusion, headache, metabolic encephalopathy, hypotension, high fevers Tick bite 3 weeks ago per her son History of atrial fibrillation. The patient is only on Eliquis. Not on on any rate controlling medication. History of hypertension, hyperlipidemia, hypothyroidism Pericardial effusion on ct scan Condition on Discharge: Good Health Concerns: Recurrence of UTIs Activity: Resume your previous activity Lifting: Gradually increase as tolerated Bathing: No limitations Exercise/Sports: Gradually increase as tolerated Driving/Machine Use: Resume 3 days after discharge Weightbearing: Full weightbearing Non-emergency contact: Primary Care Provider Call non-emergency contact if: you have any medication questions Follow-up/Referrals: Mildred Ceron MD [Primary Care Provider] - (Date & Time 10/16/2020 2:40 PM Provider Mildred Villa MD Department [facility] ) Diet: Regular Addtl Attending Provider Instructions: None Pending Studies at Discharge: No Stand-Alone Forms: [facility], Smoking Cessation Medications and DC Order Prescriptions: New cefdinir 300 mg capsule 300 mg PO Q12H 10 Days Qty: 20 RF: 0 doxycycline monohydrate 100 mg capsule 100 mg PO BID 10 Days Qty: 20 RF: 0 Continued Eliquis 2.5 mg tablet 2.5 mg PO BID Qty: 180 RF: 3 acetaminophen [Tylenol Extra Strength] 500 mg Tablet 1,000 mg PO Q6H PRN (Reason: Fever Or Pain) RF: 0 Discharge Orders: Discharge Order (Routine); Ordered 10/10/20 Ordered By: Sj Jackson Admission Data Admit Date/Time: 10/07/20 02:11 Attending Provider: Sj Jackson Admit Provider: Andre Lobo Primary Care Provider: Mildred Ceron Other Providers: Andre Lobo ; Sj Jackson ; Jose Daniel Scanlon ; Kate Garcia ; Alvino Salgado I. ; Juan Pablo Limon II ; Kindra Melendez ; Charan Malik
[2020-10-10] MEDS: DOXYCYCLINE HYCLATE 100 MG in DEXTROSE 5% 100 ML IV SCH (11:12)
== END 2020-10-10 14:16 | disposition home health service (06) | DRG 871 ==
LOC: ED 22:29 → 2S 10-07 02:11 → SUATTDRO 10-07 02:11 → 2S 10-07 02:59

== ENCOUNTER 2022-06-03 17:26 | Observation (INO) ==
[2022-06-03] MEDS ORDERED: SODIUM CHLORIDE 0.9% 500 ML IV ONE (17:35)
--- NOTE | 2022-06-03 17:43 | Emergency Department Note ---
Impression & Plan Chest pain, Shortness of breath ED Provider Note NAME: WILLIE POOL AGE: 81 SEX: F : 1940 ARRIVES VIA: Ambulance INFORMANT: Patient ED PROVIDER(S): Miguel Dukes DO CHIEF COMPLAINT: Chest pain and SOB HPI: Patient is an 81-year-old female with a past medical history of hypertension, A. fib, and sick sinus syndrome with pacer on apixaban who presents to the ER for chest pain and shortness of breath which started around 3 PM today. She also notes that she felt like her heart was racing. They called EMS after going to acute care and finding her to be in A. fib with RVR. EMS gave her 5 mg of Cardizem IV under my direction via medical command prior to arrival. Upon arrival she denies any headache or change in vision. No chest pain at this time or shortness of breath. No belly pain, nausea, vomiting, or diarrhea. No dysuria, urgency, or frequency. No other exacerbating or remitting factors. PAST MEDICAL HISTORY:See Below PAST SURGICAL HISTORY:See Below FAMILY HISTORY:See Below SOCIAL HISTORY:See Below HOME MEDICATIONS:See Below ALLERGIES:See Below VITALS:See Below PHYSICAL EXAMINATION: GENERAL: Sitting up in bed, alert, well appearing, chronically ill-appearing, disheveled EYE EXAM: normal conjunctiva. PERRL and EOM's grossly intact. OROPHARYNX: mucous membranes are moist LUNGS: Clear to auscultation. Normal chest wall mechanics HEART: Irregular regular, S1 normal and S2 normal ABDOMEN: abdomen soft, non-tender, normo-active bowel sounds, no masses, no rebound or guarding. UPPER EXTREMITIES: upper extremities are grossly normal. LOWER EXTREMITIES: No pitting edema. NEURO EXAM: Normal sensorium, cranial nerves II-XII grossly intact, normal speech, no gross weakness of arms, no gross weakness of legs. MEDICAL DECISION MAKING: Patient is 81-year-old female brought in by EMS who I received medical command call on. I discussed the case with them and gave medical command for 5 mg Cardizem IV x1 prior to arrival. This slowed her heart rate down and she became paced upon arrival per my evaluation. External records were reviewed. Patient was hypotensive prior to arrival. IV was established blood work was obtained and showed no significant leukocytosis or anemia. BMP with elevated glucose 170. LFTs bilirubin was unremarkable. Troponin was negative. Lipase was unremarkable. COVID was negative. Chest x-ray was unremarkable. Patient was given IV fluids. External records were reviewed. I discussed the case with the hospitalist as patient was hypotensive with systolics of 80 in the field prior to arrival with an elevated heart rate although I was unable to confirm this. Pacer was interrogated and showed no V. tach. Discussed the case with care managers in regards to presentation work-up and further evaluation. Discussed the case following this with the hospitalist in regards to admission and further work-up with Dr. Pedraza. Triage Nursing notes reviewed. Limited review of prior medical records performed Vital Signs: reviewed and remarkable for no significant abnormalities Differential diagnosis: Cardiac ischemia, aortic dissection, pulmonary embolism, pneumothorax, pneumonia, pericarditis, myocarditis, esophageal rupture, GERD, cholecystitis, pancreatitis, musculoskeletal, as well as other pathologies. ER treatment provided: See below Diagnostics interpreted by me include EKG and cardiac monitoring as listed below: -Cardiac Monitoring: An order was placed for continuous cardiac monitoring. The monitor shows a rate of 78 with Afib rhythm. -ECG: A. fib rate of 75 PVCs present Intermittently paced QTC 388 A. fib is new from previously paced rhythm -Laboratory studies:Interpreted by me as stated above in MDM and shown below. Imaging studies: Xrays: As interpreted by me: Portable AP upright 1 view of the chest shows no focal pneumonia CTs show: none Consultation(s): Discussed the case with Dr. Pedraza Procedures:none Critical Care: None Past Med/Surg History Medical History Chronic pain left knee Diverticular disease Hx of basal cell carcinoma face s/p excision Hx of vertigo Hypertension Hypothyroidism Osteoporosis, unspecified Pacemaker hx tachy cody syndrome Surgical History History of basal cell carcinoma excision History of excision of pilonidal cyst History of permanent cardiac pacemaker placement 2014 History of surgery IMPLANTS IN CHIN 2/2 DETERIORATION History of total right knee replacement Hx of colonoscopy with polypectomy Hx of tonsillectomy Family History Grandmother (Maternal) Family history of diabetes mellitus Mother Colorectal cancer Denies family history of Ovarian cancer Prostate cancer Myocardial infarction Breast cancer Social History Smoking Status: Never smoker Second Hand Exposure: No; Hx Alcohol Use: No Hx Substance Use: No Preferred Language: Eritrean Communication Ability: Effective Visual Impairment: No Limitations Hearing Ability: Normal Turbo Electric Operator Required: No Beliefs That Will Affect Care: None marital status: Current Living Situation: Alone current occupational status: retired Other Information That Helps Us Care for You: No Feels Safe at Home: Yes Safety Concerns: Feels Safe At This Time caffeine: No Dental Care, Regularly: Yes Physical Activity Frequency: Other Seatbelt Use: always Sunscreen Use: Yes Assistive Devices: Cane, Glasses and Walker Allergies Allergies Allergy/AdvReac Type Severity Reaction Status Date / Time nitrofurantoin AdvReac Intermediate dizziness Verified 01/06/22 14:19 [From Macrodantin] adhesive tape AdvReac Mild skin Verified 01/06/22 14:19 irritation clindamycin AdvReac Mild GI upset Verified 01/06/22 14:19 Penicillins AdvReac Mild Rash Verified 06/03/22 19:13 Home Meds Home Medications Medication Instructions Recorded Confirmed acetaminophen 500 mg tablet 1,000 mg PO TID 10/06/20 06/03/22 (Tylenol Extra Strength) Prevagen 10 mg PO BID 06/03/22 06/03/22 calcium carbonate 600 mg-vitamin 1 tab PO BID 06/03/22 06/03/22 D3 10 mcg (400 unit) tablet (Calcium 600 + D(3)) coQ10 (ubiquinol) 100 mg capsule 100 mg PO DAILY 06/03/22 06/03/22 food supplemt, lactose-reduced 1 ea PO DAILY 06/03/22 06/03/22 (Ensure oral liquid) loperamide 2 mg tablet 2 mg PO QID PRN Diarrhea 06/03/22 06/03/22 metoprolol succinate 25 mg 12.5 mg PO DAILY 06/03/22 06/03/22 tablet,extended release 24 hr multivitamin 1 tab PO DAILY 06/03/22 06/03/22 omega-3 fatty acids 1,000 mg 1,000 mg PO DAILY 06/03/22 06/03/22 capsule prednisone 20 mg tablet 20 mg PO .TAPER UD 06/03/22 06/03/22 vit C 226 mg-vit E 90 mg-copper 1 cap PO BID 06/03/22 06/03/22 0.8 mg-zinc oxide-lutein 5 mg capsule (PreserVision Lutein) Previous Rx's Medication Instructions Recorded apixaban 2.5 mg tablet (Eliquis) 2.5 mg PO BID #180 tabs 09/03/20 Results & Data (ED) Vital Signs Vital Signs - 24 hr 06/03/22 17:30 06/03/22 17:35 06/03/22 17:41 Temperature 36.8 C Temperature Source Oral Pulse Rate 74 Pulse Rate from SpO2 Sensor Respiratory Rate 18 Respiratory Effort / Characteristics Non-Labored Respiratory Depth Normal Blood Pressure 106/58 L Blood Pressure Mean 74 Pulse Oximetry 95 95 Oxygen Delivery Method Room Air Room Air Room Air Sepsis Recent Fever Within 48 Hours No Sepsis New/Unexplained Change in Mental Status No Sepsis Action Taken by Nursing No Action Required 06/03/22 17:33 06/03/22 17:34 06/03/22 17:34 Temperature Temperature Source Pulse Rate 69 73 Pulse Rate from SpO2 Sensor Respiratory Rate 20 25 H Respiratory Effort / Characteristics Respiratory Depth Blood Pressure 106/58 L Blood Pressure Mean 74 Pulse Oximetry Oxygen Delivery Method Sepsis Recent Fever Within 48 Hours Sepsis New/Unexplained Change in Mental Status Sepsis Action Taken by Nursing 06/03/22 18:30 06/03/22 18:30 06/03/22 19:00 Temperature Temperature Source Pulse Rate 64 Pulse Rate from SpO2 Sensor 63 Respiratory Rate 18 Respiratory Effort / Characteristics Respiratory Depth Blood Pressure 116/54 L 105/61 Blood Pressure Mean 74 75 Pulse Oximetry 98 Oxygen Delivery Method Sepsis Recent Fever Within 48 Hours Sepsis New/Unexplained Change in Mental Status Sepsis Action Taken by Nursing 06/03/22 19:00 06/03/22 19:30 06/03/22 19:30 Temperature Temperature Source Pulse Rate 62 60 Pulse Rate from SpO2 Sensor 64 60 Respiratory Rate 16 17 Respiratory Effort / Characteristics Respiratory Depth Blood Pressure 106/56 L Blood Pressure Mean 72 Pulse Oximetry 96 96 Oxygen Delivery Method Sepsis Recent Fever Within 48 Hours Sepsis New/Unexplained Change in Mental Status Sepsis Action Taken by Nursing 06/03/22 20:00 06/03/22 20:00 Temperature Temperature Source Pulse Rate 63 Pulse Rate from SpO2 Sensor 62 Respiratory Rate 17 Respiratory Effort / Characteristics Respiratory Depth Blood Pressure 106/64 Blood Pressure Mean 78 Pulse Oximetry 95 Oxygen Delivery Method Sepsis Recent Fever Within 48 Hours Sepsis New/Unexplained Change in Mental Status Sepsis Action Taken by Nursing Laboratory Data 06/03/22 17:30 06/03/22 17:30 Lab Results 06/03/22 06/03/22 06/03/22 Range/Units 17:30 17:30 17:38 WBC 6.41 (4.8-10.8) K/ul RBC 4.60 (4.20-5.40) M/uL Hgb 13.7 (12.0-16.0) g/dl Hct 40.8 (37.0-47.0) % MCV 88.7 (80.0-100.0) fL MCH 29.8 (25.0-34.0) pg MCHC 33.6 (32.0-36.0) g/dL RDW Std Deviation 43.8 (36.4-46.3) fL RDW Coeff of Aditya 13.5 (11.5-14.5) % Plt Count 266 (130-400) K/uL MPV 10.6 (9.4-12.4) fL Immature Gran % (Auto) 0.3 % Neut % (Auto) 89.5 % Lymph % (Auto) 7.2 % Rincon % (Auto) 2.8 % Eos % (Auto) 0.0 % Baso % (Auto) 0.2 % Neut # (Auto) 5.74 (1.40-6.50) K/uL Lymph # (Auto) 0.46 L (1.2-3.4) K/uL Rincon # (Auto) 0.18 (0.11-0.59) K/uL Eos # (Auto) 0.00 (0-0.50) K/uL Baso # (Auto) 0.01 (0-0.2) K/uL Immature Gran # (Auto) 0.02 (0.01-0.20) K/uL Sodium 139 (136-145) mmol/L Potassium 4.2 (3.5-5.1) mmol/L Chloride 106 (98-107) mmol/L Carbon Dioxide 26 (21-32) mmol/L Anion Gap 7 (3-11) BUN 16 (6-23) mg/dl Creatinine 0.74 (0.6-1.2) mg/dl Est Cr Clr Drug Dosing 38.5 ml/min Est GFR ( Amer) 86.8 ml/min Est GFR (Non-Af Amer) 74.9 ml/min BUN/Creatinine Ratio 21.6 H (10-20) Glucose 169 H (70-99(Fasting)) mg/dl Calcium 9.7 (8.5-10.1) mg/dl Total Bilirubin 0.4 (0.2-1.0) mg/dl AST 22 (13-39) U/L ALT 17 (7-52) U/L Alkaline Phosphatase 122 H (34-104) U/L Troponin I High Sens 10.2 (0-14) pg/ml Total Protein 7.1 (6.0-8.3) gm/dl Albumin 4.1 (3.4-5.0) gm/dl Globulin 3.0 (2.5-4.0) gm/dl Albumin/Globulin Ratio 1.4 (0.9-2) Lipase 37 (11-82) U/L SARS-CoV-2, RNA, NAAT NEGATIVE (NEGATIVE) Administered Medications Lidocaine (Lidocaine 5% 1 Patch) 1 patch TD QPM BUFFY Stop: 07/03/22 20:14 Last Admin: 06/03/22 20:54 Dose: 1 patch Documented By: AMS Discontinued Medications Sodium Chloride (Nss) 500 mls @ 999 mls/hr IV .Q31M ONE Stop: 06/03/22 18:05 Last Admin: 06/03/22 17:42 Dose: 999 mls/hr Documented By: JS Imaging Data Radiologist's Impression: Chest X-Ray 06/03/22 17:35 XR chest 1V portable CLINICAL HISTORY: Chest pain, nonspecific TECHNIQUE: Single frontal radiograph of the chest was obtained. Comparison: Comparison is made to chest radiograph 10/06/2020 FINDINGS: Dual lead pacemaker is seen. Cardiomegaly is noted. The aortic arch is calcified. The lungs are clear. No evidence of pleural effusion or pneumothorax. IMPRESSION: No acute chest disease. Cardiomegaly is noted. ACT 112: Negative or not required by law. Electronically signed by: Neno Russo M.D. 06/03/2022 6:15 PM Discharge Plan Visit Data Chief Complaint: Cardiac Assessment ED Provider: Miguel Dukes Discharge Problem: Chest pain, Shortness of breath Forms Stand Alone Forms: [facility] AssertID Prescriptions Prescriptions: No Action Eliquis 2.5 mg tablet 2.5 mg PO BID Qty: 180 3RF acetaminophen [Tylenol Extra Strength] 500 mg Tablet 1,000 mg PO TID multivitamin Tablet 1 tab PO DAILY omega-3 fatty acids [Fish Oil Concentrate] 1,000 mg Capsule 1,000 mg PO DAILY prednisone 20 mg tablet 20 mg PO .TAPER UD Rx Instructions: is on 40 mg a day loperamide 2 mg Tablet 2 mg PO QID PRN (Reason: Diarrhea) metoprolol succinate 25 mg tablet extended release 24 hr 12.5 mg PO DAILY Ensure Liquid 1 ea PO DAILY PreserVision Lutein 226-90-0.8-5 mg Capsule 1 cap PO BID calcium carbonate-vitamin D3 [Calcium 600 + D(3)] 600 mg-10 mcg (400 unit) Tablet 1 tab PO BID Rx Instructions: chewable tab coQ10 (ubiquinol) 100 mg Capsule 100 mg PO DAILY Prevagen 10 mg PO BID Referrals Referrals: Mildred Ramos MD [Outside Practitioners] -
[2022-06-03 17:49] LABS: Basophils # (auto) 0.01 K/uL (0-0.2); Basophils % (auto) 0.2 %; Hematocrit (blood only) 40.8 % (37.0-47.0); Hemoglobin 13.7 g/dl (12.0-16.0); Immature Granulocytes # (auto) 0.02 K/uL (0.01-0.20); Immature Granulocytes % (auto) 0.3 %; Lymphocytes # (auto) 0.46 K/uL (1.2-3.4); Lymphocytes % (auto) 7.2 %; Mean Corpuscular Hemoglobin 29.8 pg (25.0-34.0); Mean Corpuscular Hgb Conc 33.6 g/dL (32.0-36.0); Mean Corpuscular Volume 88.7 fL (80.0-100.0); Mean Platelet Volume 10.6 fL (9.4-12.4); Monocytes # (auto) 0.18 K/uL (0.11-0.59); Monocytes % (auto) 2.8 %; Neutrophils # (auto) 5.74 K/uL (1.40-6.50); Neutrophils % (auto) 89.5 %; Platelet Count 266 K/uL (130-400); RDW Coefficient of Variation 13.5 % (11.5-14.5); RDW Standard Deviation 43.8 fL (36.4-46.3); White Blood Count 6.41 K/ul (4.8-10.8)
[2022-06-03 18:05] LABS: Albumin Globulin Ratio 1.4 (0.9-2); Albumin Level 4.1 gm/dl (3.4-5.0); BUN Creatinine Ratio 21.6 (10-20); Bilirubin,Total 0.4 mg/dl (0.2-1.0); Calcium 9.7 mg/dl (8.5-10.1); Creatinine Clr Calc Pharmacy 38.5 ml/min; Est GFR (African American) 86.8 ml/min; Est GFR (Non-African American) 74.9 ml/min; Potassium 4.2 mmol/L (3.5-5.1); Total Protein 7.1 gm/dl (6.0-8.3)
[2022-06-03 18:11] LABS: Troponin I High Sensitivity 10.2 pg/ml (0-14)
--- NOTE | 2022-06-03 18:16 | XRay Report ---
XR chest 1V portable CLINICAL HISTORY: Chest pain, nonspecific TECHNIQUE: Single frontal radiograph of the chest was obtained. Comparison: Comparison is made to chest radiograph 10/06/2020 FINDINGS: Dual lead pacemaker is seen. Cardiomegaly is noted. The aortic arch is calcified. The lungs are clear . No evidence of pleural effusion or pneumothorax. IMPRESSION: No acute chest disease. Cardiomegaly is noted. ACT 112: Negative or not required by law. Electronically signed by: Neno Russo M.D. 06/03/2022 6:15 PM
--- NOTE | 2022-06-03 19:30 | History & Physical Report ---
Date of Service June 03, 2022 Assessment & Plan (1) Palpitation: Plan: History of atrial fibrillation status post pacemaker for sick sinus syndrome [place] palpitation at around 5 PM that lasted for a few minutes Minimal shortness of breath but no chest pain and no sweating Received 10 mg intravenous Cardizem in the emergency room Rate is controlled now without any symptoms Troponin is not elevated Heart beta-anais dose has been increased to 25 mg from 12.5 mg daily from tomorrow (2) Atrial fibrillation: Plan: Rate is controlled now Has been anticoagulated with Eliquis Will monitor (3) Sick sinus syndrome: Plan: Status post pacemaker (4) Hypertension: Plan: Blood pressure is borderline low at 106/58 Received Cardizem and blood pressure went down Will increase metoprolol to 25 mg once daily to prevent palpitation (5) Hypothyroidism: Plan: Not on any medication (6) Chronic back pain: Plan: Chronic back pain without any exacerbation Does not have any radiculopathic pain We will get PT and OT evaluation May need further imaging studies Has been put on prednisone 40 mg daily for 5 days on a tapered dose as an out patient (7) Osteoporosis, unspecified: Plan: No acute issue Plan DVT prophylaxis Has been on Eliquis CODE STATUS Full Discussed with the son in detail History of Present Illness Chief Complaint: Palpitation and back pain Primary Care Provider: Rob Yanez MD She is an 81-year-old female with significant past medical history of hypothyroidism not on any medications, hyperlipidemia, atrial fibrillation status post pacemaker, hypertension apparently was brought in with palpitation that lasted for few minutes and associated with minimal shortness of breath but no chest pain. She also complains to have ongoing back pain and for that she was recently started on a prednisone taper dose which she has been taking 40 mg daily for 5 days tapering regimen. She received one-time dose of Cardizem intravenously 10 mg and her heart rate was controlled. She denies any fever and or chills, any cough or phlegm, any abdominal pain, nausea and or vomiting. She does not have any increasing swelling of the legs. Denies any problem with urine and bowel habit. Her admission labs including troponin and imaging studies are unremarkable. She was admitted to [facility] telemetry unit for continuation of care. Allergies Allergy/AdvReac Type Severity Reaction Status Date / Time nitrofurantoin AdvReac Intermediate dizziness Verified 01/06/22 14:19 [From Macrodantin] adhesive tape AdvReac Mild skin Verified 01/06/22 14:19 irritation clindamycin AdvReac Mild GI upset Verified 01/06/22 14:19 Penicillins AdvReac Mild Rash Verified 06/03/22 19:13 Home Medications Medication Instructions Recorded Confirmed Type apixaban 2.5 mg tablet (Eliquis) 2.5 mg PO BID #180 tabs 09/03/20 06/03/22 Rx acetaminophen 500 mg tablet 1,000 mg PO TID 10/06/20 06/03/22 History (Tylenol Extra Strength) Prevagen 10 mg PO BID 06/03/22 06/03/22 History calcium carbonate 600 mg-vitamin 1 tab PO BID 06/03/22 06/03/22 History D3 10 mcg (400 unit) tablet (Calcium 600 + D(3)) coQ10 (ubiquinol) 100 mg capsule 100 mg PO DAILY 06/03/22 06/03/22 History food supplemt, lactose-reduced 1 ea PO DAILY 06/03/22 06/03/22 History (Ensure oral liquid) loperamide 2 mg tablet 2 mg PO QID PRN Diarrhea 06/03/22 06/03/22 History metoprolol succinate 25 mg 12.5 mg PO DAILY 06/03/22 06/03/22 History tablet,extended release 24 hr multivitamin 1 tab PO DAILY 06/03/22 06/03/22 History omega-3 fatty acids 1,000 mg 1,000 mg PO DAILY 06/03/22 06/03/22 History capsule prednisone 20 mg tablet 20 mg PO .TAPER UD 06/03/22 06/03/22 History vit C 226 mg-vit E 90 mg-copper 1 cap PO BID 06/03/22 06/03/22 History 0.8 mg-zinc oxide-lutein 5 mg capsule (PreserVision Lutein) Past Med/Surg History Medical History Chronic pain left knee Diverticular disease Hx of basal cell carcinoma face s/p excision Hx of vertigo Hypertension Hypothyroidism Osteoporosis, unspecified Pacemaker hx tachy cody syndrome Surgical History History of basal cell carcinoma excision History of excision of pilonidal cyst History of permanent cardiac pacemaker placement 2015 History of surgery IMPLANTS IN CHIN 2/2 DETERIORATION History of total right knee replacement Hx of colonoscopy with polypectomy Hx of tonsillectomy Family History Grandmother (Maternal) Family history of diabetes mellitus Mother Colorectal cancer Denies family history of Ovarian cancer Prostate cancer Myocardial infarction Breast cancer Social History Smoking Status: Never smoker Second Hand Exposure: No; Hx Alcohol Use: No Hx Substance Use: No Preferred Language: Belarusian Communication Ability: Impaired Visual Impairment: No Limitations Hearing Ability: Normal Manager Mental Health Required: No Beliefs That Will Affect Care: None marital status: Current Living Situation: Alone current occupational status: retired Feels Safe at Home: Yes caffeine: No Dental Care, Regularly: Yes Physical Activity Frequency: Other Seatbelt Use: always Sunscreen Use: Yes Assistive Devices: Cane, Glasses and Walker Review of Systems Review of Systems: All systems reviewed and are unremarkable except as noted below Cardiovascular: Additional Comments: Palpitation Musculoskeletal: Chronic back pain without radiation Physical Exam Physical Exam: Lying in bed comfortably Constitutional: average body habitus; not ill appearing Eyes: PERRL, conjunctivae normal, anicteric sclerae ENMT: external ear and nose normal, oropharynx normal Neck: trachea midline, no thyromegaly Respiratory: no respiratory distress Auscultation: + diminished lung sounds and + crackles (Minimal crackles at the bases) Cardiovascular: Rate/Rhythm: + irregularly irregular Heart Sounds: normal S1, normal S2 and + murmur (2/6 ESM over precordium) Extremities: + edema (1+ edema confined to the ankles) Gastrointestinal (Abdomen): Inspection/Auscultation: abdomen normal to inspection and normal bowel sounds Percussion/Palpation: abdomen soft; abdomen nontender Musculoskeletal: No acute arthritis involving any joint. Chronic back pain without radiation Neurologic: Alert, awake and oriented x3. Moves all extremities and no focal sensory and motor deficit appreciated Psychiatric: A+Ox3, euthymic affect Lymphatic: no cervical or axillary lymphadenopathy Results & Data Results & Data ([facility]) Vital Signs (Past 12 Hours) Vital Signs Temp Pulse Resp BP Pulse Ox O2 Del Method 06/03/22 17:41 95 Room Air 06/03/22 17:35 Room Air 06/03/22 17:30 36.8 C 74 18 106/58 L 95 Room Air Laboratory Results Short CBC 06/03/22 Range/Units 17:30 WBC 6.41 (4.8-10.8) K/ul Hgb 13.7 (12.0-16.0) g/dl Hct 40.8 (37.0-47.0) % Plt Count 266 (130-400) K/uL BMP 06/03/22 17:30 Sodium 139 Potassium 4.2 Chloride 106 Carbon Dioxide 26 BUN 16 Creatinine 0.74 Glucose 169 H Calcium 9.7 Liver Function 06/03/22 Range/Units 17:30 Total Bilirubin 0.4 (0.2-1.0) mg/dl AST 22 (13-39) U/L ALT 17 (7-52) U/L Alkaline Phosphatase 122 H (34-104) U/L Albumin 4.1 (3.4-5.0) gm/dl (1) Hypertension Hypertension type: essential hypertension Qualified Code(s): I10 - Essential (primary) hypertension
[2022-06-03] MEDS: LIDOCAINE 5% 1 PATCH TD SCH (20:54)
[2022-06-03] MEDS ORDERED: NON-FORMULARY MEDICATION (Prevagen 10 MG) PO SCH (22:17)
[2022-06-03] MEDS ORDERED: predniSONE 20 MG TAB PO SCH (22:17)
[2022-06-04] MEDS: LIDOCAINE 5% 1 PATCH TD SCH (00:04)
[2022-06-04] MEDS: CALCIUM 600MG + VIT D 400 IU TAB PO SCH ×2 (00:21→09:02)
[2022-06-04] MEDS: ACETAMINOPHEN 500 MG TAB PO SCH ×3 (00:21→14:44)
[2022-06-04] MEDS: APIXABAN 2.5 MG TAB PO SCH ×2 (00:21→09:02)
[2022-06-04 06:41] LABS: BUN Creatinine Ratio 24.2 (10-20); Calcium 8.9 mg/dl (8.5-10.1); Creatinine Clr Calc Pharmacy 43.2 ml/min; Est GFR (African American) 94.7 ml/min; Est GFR (Non-African American) 81.7 ml/min; Magnesium 1.9 mg/dl (1.7-2.4); Potassium 3.9 mmol/L (3.5-5.1)
[2022-06-04 06:45] LABS: Basophils # (auto) 0.06 K/uL (0-0.2); Basophils % (auto) 0.9 %; Eosinophils # (auto) 0.06 K/uL (0-0.50); Eosinophils % (auto) 0.9 %; Hematocrit (blood only) 33.9 % (37.0-47.0); Hemoglobin 11.2 g/dl (12.0-16.0); Immature Granulocytes # (auto) 0.01 K/uL (0.01-0.20); Immature Granulocytes % (auto) 0.2 %; Lymphocytes # (auto) 1.44 K/uL (1.2-3.4); Lymphocytes % (auto) 21.9 %; Mean Corpuscular Hemoglobin 29.9 pg (25.0-34.0); Mean Corpuscular Volume 90.4 fL (80.0-100.0); Mean Platelet Volume 10.1 fL (9.4-12.4); Monocytes # (auto) 0.52 K/uL (0.11-0.59); Monocytes % (auto) 7.9 %; Neutrophils # (auto) 4.49 K/uL (1.40-6.50); Neutrophils % (auto) 68.2 %; Platelet Count 232 K/uL (130-400); RDW Coefficient of Variation 13.4 % (11.5-14.5); RDW Standard Deviation 44.5 fL (36.4-46.3); Red Blood Count 3.75 M/uL (4.20-5.40); White Blood Count 6.58 K/ul (4.8-10.8)
--- NOTE | 2022-06-04 08:51 | Cardiology Consultation ---
Date of Consultation June 04, 2022 Assessment & Plan (1) Atrial fibrillation: She is back in SR. Continue metoprolol succinate 25 mg daily, Eliquis 2.5 mg BID. -Repeat EKG -limited echocardiogram ordered for assessment of LV wall motion and h/o pericardial effusion Addendum: 06/04/2022, 12:41 p.m.. Echocardiogram reveals stable findings as noted, follow-up EKG reveals stable findings. Mild elevation in troponin I noted, without any emanuel symptoms of angina. Patient notes feeling well from a cardiac perspective, and asked if she could go today. Her prior to hospital dose of metoprolol succinate had been 12.5 milligrams daily, I think it is reasonable to increase this to 25 milligrams daily and consider discharge if she is deemed to be prepared for discharge from a standpoint of her back pain. She certainly seems to feel her atrial fibrillation. She has recurrent episodes, would have low threshold for adding an antiarrhythmic medications such as sotalol or amiodarone. (2) Chronic back pain: -as per hospitalist service. She is on a lidoderm patch and prednisone. Lumbar spine x-rays performed 04/13/2022 was an outpatient revealed age indeterminate compression deformities of T4, L1, L2. History of Present Illness Attending Physician: Jan Espinosa MD History of Present Illness Jennifer Cast is an 81-year-old female seen in cardiology consultation per the request of Dr. Pedraza for subjective palpitations with findings of atrial fibrillation. The patient has a history of paroxysmal atrial fibrillation and tachycardia bradycardia syndrome for which she underwent a previous dual-chamber permanent pacemaker. She is chronically anticoagulated with Eliquis, appropriate dose of 2.5 milligrams twice daily given her age and weight. She has had recent issues with low back pain and had been placed on a prednisone taper. History day she presented to the emergency room with subjective palpitations. EKG performed 06/03/2022 revealed atrial fibrillation at 75 beats per minute with occasional ventricular paced beats. Patient subsequently converted to sinus rhythm while off of telemetry at approximately 6:15 p.m. last evening. Telemetry reveals sinus rhythm in the 60s 70s with appropriate demand pacing. Patient feels well from a palpitation standpoint. Her symptoms have resolved. She denies any chest discomfort or shortness of breath. She notes ongoing back pain, but it is no worse than what it has been for the several proceeding days. Allergies Allergy/AdvReac Type Severity Reaction Status Date / Time nitrofurantoin AdvReac Intermediate dizziness Verified 01/06/22 14:19 [From Macrodantin] adhesive tape AdvReac Mild skin Verified 01/06/22 14:19 irritation clindamycin AdvReac Mild GI upset Verified 01/06/22 14:19 Penicillins AdvReac Mild Rash Verified 06/03/22 19:13 Home Medications Medication Instructions Recorded Confirmed Type apixaban 2.5 mg tablet (Eliquis) 2.5 mg PO BID #180 tabs 09/03/20 06/03/22 Rx acetaminophen 500 mg tablet 1,000 mg PO TID 10/06/20 06/03/22 History (Tylenol Extra Strength) Prevagen 10 mg PO BID 06/03/22 06/03/22 History calcium carbonate 600 mg-vitamin 1 tab PO BID 06/03/22 06/03/22 History D3 10 mcg (400 unit) tablet (Calcium 600 + D(3)) coQ10 (ubiquinol) 100 mg capsule 100 mg PO DAILY 06/03/22 06/03/22 History food supplemt, lactose-reduced 1 ea PO DAILY 06/03/22 06/03/22 History (Ensure oral liquid) loperamide 2 mg tablet 2 mg PO QID PRN Diarrhea 06/03/22 06/03/22 History metoprolol succinate 25 mg 12.5 mg PO DAILY 06/03/22 06/03/22 History tablet,extended release 24 hr multivitamin 1 tab PO DAILY 06/03/22 06/03/22 History omega-3 fatty acids 1,000 mg 1,000 mg PO DAILY 06/03/22 06/03/22 History capsule prednisone 20 mg tablet 20 mg PO .TAPER UD 06/03/22 06/03/22 History vit C 226 mg-vit E 90 mg-copper 1 cap PO BID 06/03/22 06/03/22 History 0.8 mg-zinc oxide-lutein 5 mg capsule (PreserVision Lutein) Patient History Medical History Chronic pain left knee Diverticular disease Hx of basal cell carcinoma face s/p excision Hx of vertigo Hypertension Hypothyroidism Osteoporosis, unspecified Pacemaker hx tachy cody syndrome Surgical History History of basal cell carcinoma excision History of excision of pilonidal cyst History of permanent cardiac pacemaker placement 2014 History of surgery IMPLANTS IN CHIN 2/2 DETERIORATION History of total right knee replacement Hx of colonoscopy with polypectomy Hx of tonsillectomy Family History Grandmother (Maternal) Family history of diabetes mellitus Mother Colorectal cancer Denies family history of Ovarian cancer Prostate cancer Myocardial infarction Breast cancer Social History Smoking Status: Never smoker Second Hand Exposure: No; Hx Alcohol Use: No Hx Substance Use: No Preferred Language: [place]ian Communication Ability: Effective Visual Impairment: No Limitations Hearing Ability: Normal Driver Sales Required: No Beliefs That Will Affect Care: None marital status: Current Living Situation: Alone current occupational status: retired Other Information That Helps Us Care for You: No Feels Safe at Home: Yes Safety Concerns: Feels Safe At This Time caffeine: No Dental Care, Regularly: Yes Physical Activity Frequency: Other Seatbelt Use: always Sunscreen Use: Yes Assistive Devices: Cane, Glasses and Walker Review of Systems Review of Systems: All systems reviewed & are unremarkable except as noted in HPI & below Physical Exam Constitutional: WD/WN, vitals as above Respiratory: normal respiratory effort, lungs clear to auscultation Chest (Breasts): normal inspection/palpation of breasts Gastrointestinal (Abdomen): normal bowel sounds, soft, nontender, no hepatosplenomegaly Neurologic: PERRL, EOMI, accommodation nl, no face palsy, no dysarthria Results & Data ([facility]) Vital Signs (Past 12 Hours) Vital Signs Temp Pulse Pulse Resp BP BP Pulse Ox 06/04/22 07:32 36.9 C 64 18 100/57 L 94 06/04/22 03:00 36.7 C 61 16 119/50 L 95 06/04/22 00:15 62 06/04/22 00:08 06/03/22 23:44 36.9 C 62 16 129/73 96 06/03/22 22:31 60 21 106/51 L 94 O2 Del Method 06/04/22 07:32 Room Air 06/04/22 03:00 Room Air 06/04/22 00:15 06/04/22 00:08 Room Air 06/03/22 23:44 Room Air 06/03/22 22:31 Room Air Laboratory Results Cardiac Enzymes 06/03/22 06/04/22 06/04/22 Range/Units 17:30 00:35 05:48 AST 22 (13-39) U/L Troponin I High Sens 10.2 383.3 H* D 269.2 H* D (0-14) pg/ml CBC 06/03/22 06/04/22 Range/Units 17:30 05:48 WBC 6.41 6.58 (4.8-10.8) K/ul RBC 4.60 3.75 L (4.20-5.40) M/uL Hgb 13.7 11.2 L (12.0-16.0) g/dl Hct 40.8 33.9 L (37.0-47.0) % Plt Count 266 232 (130-400) K/uL Neut # (Auto) 5.74 4.49 (1.40-6.50) K/uL Lymph # (Auto) 0.46 L 1.44 (1.2-3.4) K/uL [place] # (Auto) 0.18 0.52 (0.11-0.59) K/uL Eos # (Auto) 0.00 0.06 (0-0.50) K/uL Baso # (Auto) 0.01 0.06 (0-0.2) K/uL Comprehensive Metabolic Panel 06/03/22 06/04/22 Range/Units 17:30 05:48 Sodium 139 142 (136-145) mmol/L Potassium 4.2 3.9 (3.5-5.1) mmol/L Chloride 106 111 H (98-107) mmol/L Carbon Dioxide 26 28 (21-32) mmol/L BUN 16 16 (6-23) mg/dl Creatinine 0.74 0.66 (0.6-1.2) mg/dl Glucose 169 H 92 (70-99(Fasting)) mg/dl Calcium 9.7 8.9 (8.5-10.1) mg/dl AST 22 (13-39) U/L ALT 17 (7-52) U/L Alkaline Phosphatase 122 H (34-104) U/L Total Protein 7.1 (6.0-8.3) gm/dl Albumin 4.1 (3.4-5.0) gm/dl Intake and Output 06/03/22 06/04/22 06/04/22 22:59 06:59 14:59 Intake Total 500 / 500 Balance 500 / 500 Intake: IV 500 / 500 Sodium Chloride 0.9% 500 ml @ 500 / 500 999 mls/hr IV .Q31M ONE Rx#: [id number] Other: # Unmeasured Voids 1 Weight 48 kg Weight Measurement Method Chair Scale Diagnostic Findings Per chest x-ray, per radiology report, no active chest disease. Echocardiogram performed today and reviewed independently: A focused goal directed study performed in follow-up of previously noted pericardial effusion and for assessment of LV wall motion. Sinus rhythm in the 60s present during the echocardiogram. There is a trivial loculated anterior and right lateral pericardial effusion. No evidence of tamponade. Compared to the previous study dated 10/07/2020 there is less fluid. The left ventricular wall motion is normal without regional wall motion abnormalities, LVEF 60 -65%. EKG performed 06/04/2022, atrial paced rhythm at 60 beats per minute with no significant repolarization changes.
[2022-06-04] MEDS ORDERED: OMEGA-3 (PURIFIED FISH OIL) 1 GM CAP PO SCH (09:00)
[2022-06-04] MEDS ORDERED: NON-FORMULARY MEDICATION (Multivitamin Tablet) PO SCH (09:00)
[2022-06-04] MEDS ORDERED: CEROVITE ADV FORMULA TAB PO SCH (09:00)
[2022-06-04] MEDS ORDERED: METOPROLOL SUCC 25MG EXT REL TAB PO SCH (09:00)
[2022-06-04] MEDS ORDERED: predniSONE 20 MG TAB PO SCH (09:00)
[2022-06-04] MEDS ORDERED: NON-FORMULARY MEDICATION (Food Supplemt, Lactose-Reduced [Ensure] Liquid) PO SCH (09:00)
[2022-06-04] MEDS ORDERED: NON-FORMULARY MEDICATION (Coq10 (Ubiquinol) 100 mg Capsule) PO SCH (09:00)
--- NOTE | 2022-06-04 09:05 | Electrocardiogram Report ---
Test Reason : Blood Pressure : / mmHG Vent. Rate : 075 BPM Atrial Rate : 033 BPM P-R Int : 000 ms QRS Dur : 074 ms QT Int : 348 ms P-R-T Axes : 000 006 -35 degrees QTc Int : 388 ms Atrial fibrillation with frequent ventricular-paced complexes Abnormal ECG When compared with ECG of 07-OCT-2020 06:24, Electronic ventricular pacemaker has replaced Electronic atrial pacemaker Confirmed by Adarsh Estrada ([id number]) on 06/04/2022 9:04:42 AM Referred By: REFERRED SELF Confirmed By:Hadley Estrada
[2022-06-04] MEDS ORDERED: AMMONIUM LACTATE 12% LOTION 225 GM BTL EXT SCH (12:45)
--- NOTE | 2022-06-04 14:07 | Discharge Summary ---
Date of Service June 04, 2022 Admission HPI Per Admitting Provider She is an 81-year-old female with significant past medical history of hypothyroidism not on any medications, hyperlipidemia, atrial fibrillation status post pacemaker, hypertension apparently was brought in with palpitation that lasted for few minutes and associated with minimal shortness of breath but no chest pain. She also complains to have ongoing back pain and for that she was recently started on a prednisone taper dose which she has been taking 40 mg daily for 5 days tapering regimen. She received one-time dose of Cardizem intravenously 10 mg and her heart rate was controlled. She denies any fever and or chills, any cough or phlegm, any abdominal pain, nausea and or vomiting. She does not have any increasing swelling of the legs. Denies any problem with urine and bowel habit. Her admission labs including troponin and imaging studies are unremarkable. She was admitted to [facility] telemetry unit for continuation of care. Admission Exam Per Admitting Provider Physical Exam: Lying in bed comfortably Constitutional: average body habitus; not ill appearing Eyes: PERRL, conjunctivae normal, anicteric sclerae ENMT: external ear and nose normal, oropharynx normal Neck: trachea midline, no thyromegaly Respiratory: no respiratory distress Auscultation: + diminished lung sounds and + crackles (Minimal crackles at the bases) Cardiovascular: Rate/Rhythm: + irregularly irregular Heart Sounds: normal S1, normal S2 and + murmur (2/6 ESM over precordium) Extremities: + edema (1+ edema confined to the ankles) Gastrointestinal (Abdomen): Inspection/Auscultation: abdomen normal to inspection and normal bowel sounds Percussion/Palpation: abdomen soft; abdomen nontender Musculoskeletal: No acute arthritis involving any joint. Chronic back pain without radiation Neurologic: Alert, awake and oriented x3. Moves all extremities and no focal sensory and motor deficit appreciated Psychiatric: A+Ox3, euthymic affect Lymphatic: no cervical or axillary lymphadenopathy Principal Diagnosis A. fib RVR NSTEMI type II Discharge Exam GENERAL: Alert and oriented x3. NAD, on RA. HEENT: No pallor, no icterus. Pupils equal, round and reactive to light. Oral mucosa moist. NECK: No JVD, no neck masses. HEART: S1 and S2 heard. No murmur, no gallop. rate controlled. RESPIRATORY SYSTEM: Normal AP diameter. No accessory muscle use. No wheezing, no crackles. ABDOMEN: Soft, bowel sounds present, nontender, no distention. CENTRAL NERVOUS SYSTEM: No facial droop. Speech is clear. Obeys simple commands. Moves extremities. EXTREMITIES: No edema, no erythema seen. BL dry feet. Discharge Data Allergies Allergy/AdvReac Type Severity Reaction Status Date / Time nitrofurantoin AdvReac Intermediate dizziness Verified 01/06/22 14:19 [From Macrodantin] adhesive tape AdvReac Mild skin Verified 01/06/22 14:19 irritation clindamycin AdvReac Mild GI upset Verified 01/06/22 14:19 Penicillins AdvReac Mild Rash Verified 06/03/22 19:13 Consultations 06/03/22 18:43 ED Decision to Admit Stat 06/03/22 19:35 Consult Cardiology Routine Hospital Course (1) Paroxysmal A-fib: (2) Type 2 AK (myocardial infarction): Plan 81-year-old lady was admitted for palpitation and was found to be in A-fib RVR by EMS, patient received 10 mg IV Cardizem in the ER, rate has been controlled since then. Pt w/ no chest pain or sob while in hospital. Troponin was mildly elevated likely type II NSTEMI secondary to A-fib RVR. Cardiology evaluated, echo reviewed, EKG reviewed, metoprolol dose has been increased to 25 mg daily. Patient to follow-up with PCP in a week time upon discharge, establish orthospine for her compression fracture of the vertebrae and chronic back pain, follow-up with her regular cardiology in 2 to 4 weeks after discharge. Patient reports improvement in her chronic low back pain with Lidoderm patch, she is to use Tylenol for mild pain and [id number]-[id number]-jijulbu 4% Lidoderm patch for moderate pain. By CMS guidelines, a determination that the admission or continued stay is not medically necessary has been made by a member of the Utilization Review committee and a physician for this hospital stay. Therefore, a Code 44 will be completed and the inpatient admission will be changed to outpatient. Following instructions were communicated at the point of discharge: Follow-up with your primary care physician within a week time and likely you will need to have CBC/CMP/magnesium/phosphorus. For your chronic back pain/compression fracture of your vertebrae, establish and follow-up with orthospine as an outpatient. For your palpitation, your metoprolol dose has been increased.Follow-up with your cardiology as an outpatient in 2 to 4 weeks time. For your low back pain, you can use [id number] Tylenol for mild pain and [id number]-ozo-[id number] 4% Lidoderm patch for moderate pain. Apply moisturizer to your bilateral lower extremities up to 2 times a day. Take medications as prescribed. Home Health Attestation I certify that this patient is under my care and that I, or a physicians nurses medical assistants phlebotomists working with me, had a face to-face encounter that meets the home health dvrn-od-aqae encounter requirements with this patient. The encounter with the patient was in whole, or in part, for the following medical condition, which is the primary reason for home health care (list medical condition): I certify that, based on my findings, the following services are medically necessary home health services: My clinical findings support the need for the above services because: Further, I certify that my clinical findings support that this patient is homebound (i.e. absences from home require considerable and taxing effort and are for medical reasons or baptism services or infrequently or of short duration when for other reasons) because: Certification for Home Health Services: Based on the above findings, I certify that this patient is confined to the home and needs intermittent longterm care, physical therapy and/or speech therapy or continues to need occupational therapy. The patient is under my care, and I have initiated the establishment of the plan of care. This patient will be followed by a physician who will periodically review the plan of care. Total Time Total Time Spent Total Time Spent (In Minutes): 45 Discharge Plan Discharge Items Patient Disposition: Home - Home Health Services Reason For Visit: PALPITATION, AF, BACK PAIN Discharge Diagnosis: A. fib RVR NSTEMI type II Activity: Resume your previous activity Non-emergency contact: Primary Care Provider Call non-emergency contact if: you have any medication questions Follow-up/Referrals: Rob Yanez MD [Primary Care Provider] - Diet: Heart Healthy and Low Sodium (2gm) Addtl Attending Provider Instructions: Follow-up with your primary care physician within a week time and likely you will need to have CBC/CMP/magnesium/phosphorus. For your chronic back pain/compression fracture of your vertebrae, establish and follow-up with orthospine as an outpatient. For your palpitation, your metoprolol dose has been increased.Follow-up with your cardiology as an outpatient in 2 to 4 weeks time. For your low back pain, you can use [id number] Tylenol for mild pain and dpzh-jai-omqbaok 4% Lidoderm patch for moderate pain. Apply moisturizer to your bilateral lower extremities up to 2 times a day. Take medications as prescribed. Pending Studies at Discharge: No Stand-Alone Forms: My [facility], Smoking Cessation Medications and DC Order Prescriptions: New metoprolol succinate 25 mg Tablet Extended Release 24 Hr 25 mg PO DAILY Qty: 30 0RF Continued Eliquis 2.5 mg tablet 2.5 mg PO BID Qty: 180 3RF acetaminophen [Tylenol Extra Strength] 500 mg Tablet 1,000 mg PO TID multivitamin Tablet 1 tab PO DAILY omega-3 fatty acids [Fish Oil Concentrate] 1,000 mg Capsule 1,000 mg PO DAILY prednisone 20 mg tablet 20 mg PO .TAPER UD Rx Instructions: is on 40 mg a day loperamide 2 mg Tablet 2 mg PO QID PRN (Reason: Diarrhea) Ensure Liquid 1 ea PO DAILY PreserVision Lutein 226-90-0.8-5 mg Capsule 1 cap PO BID calcium carbonate-vitamin D3 [Calcium 600 + D(3)] 600 mg-10 mcg (400 unit) Tablet 1 tab PO BID Rx Instructions: chewable tab coQ10 (ubiquinol) 100 mg Capsule 100 mg PO DAILY Prevagen 10 mg PO BID Discontinued metoprolol succinate 25 mg tablet extended release 24 hr 12.5 mg PO DAILY Discharge Orders: Discharge Order (Routine); Ordered 06/04/22 Ordered By: Jan Espinosa Admission Data Admit Date/Time: 06/03/22 19:31 Attending Provider: Jan Espinosa Admit Provider: Aneudy Pedraza Primary Care Provider: Rob Yanez Other Providers: Aneudy Pedraza ; Nathan Long
--- NOTE | 2022-06-04 14:50 | Communication Note ---
Date of Service: June 04, 2022 By CMS guidelines, a determination that the admission or continued stay is not medically necessary has been made by a member of the Utilization Review co mmittee and a physician for this hospital stay. Therefore, a Code 44 will be completed and the inpatient admission will be changed to outpatient. DO KARINA Avilez physician member
--- NOTE | 2022-06-05 15:36 | Electrocardiogram Report ---
Test Reason : Blood Pressure : / mmHG Vent. Rate : 060 BPM Atrial Rate : 060 BPM P-R Int : 202 ms QRS Dur : 068 ms QT Int : 412 ms P-R-T Axes : 026 -13 028 degrees QTc Int : 412 ms Atrial-paced rhythm Abnormal ECG When compared with ECG of 03-JUN-2022 17:32, Electronic atrial pacemaker has replaced Electronic ventricular pacemaker Confirmed by Adarsh Estrada ([id number]) on 06/05/2022 3:36:32 PM Referred By: REFERRED SELF Confirmed By:Hadley Estrada
== END 2022-06-04 15:10 | disposition home health service (06) ==
LOC: ED 17:26 → EDINP 19:31 → INTOOBSV 19:31 → SUATTDRO 19:31 → 2E 22:18